=== PATIENT | male | born 1970 | race Caucasian/White ===

== ENCOUNTER 2020-07-22 11:32 | Inpatient (IN) | payer MEDICAID, SELFPAY ==
[2020-04-21 12:20] VITALS: BMI 28.3
[2020-07-22] VITALS (40 sets, daily range): BP systolic 40–226; BP diastolic 20–142; PULSE 90–120; RESP 14–33; TEMP 36.6–39; O2SAT 76–100; BMI 30.9; BMI 29.4
[2020-07-22] MEDS: Etomidate 20 MG/10 ML Vial IV (11:47)
[2020-07-22] MEDS: Rocuronium Bromide 50 MG/5 ML Vial IV (11:47)
[2020-07-22 11:55] LABS: Base Excess -4 mmol/L (-2 to +2); Bicarbonate 20.5 mmol/L (22-26); Blood Gas Specimen Type ART; SO2 71 % (95-99); Total Carbon Dioxide 22 mmol/L
--- NOTE | 2020-07-22 11:55 | CT_ITS ---
STUDY: CT BRAIN WITHOUT CONTRAST REASON FOR EXAM: Male, 50 years old. ALTERED MENTAL STATUS RADIATION DOSAGE (If Supplied By Facility): CTDIvol = ( 60.81 ) mGy, DLP = ( 1067.08 ) mGycm TECHNIQUE: Transaxial CT imaging of the brain was performed without administration of intravenous contrast material. Individualized dose optimization techniques were used for this CT. COMPARISON: No relevant priors. FINDINGS: Normal soft tissue structures. Normal calvarium. Normal size ventricles and extra-axial spaces for the patient''s age. There is evidence of pronounced garduno-white matter differentiation in the cerebral hemispheres bilaterally. There is evidence of old lacunar infarcts in the caudate nucleus involving the head and body on the right side. Lacunar infarct in the left basal ganglion. Normal brainstem. Diffuse hypodensity involving both lobes of the cerebellum in keeping with diffuse infarction. Decreased attenuation in the cerebellum with edema. There is no intracranial hemorrhage. There are no findings of an acute ischemic infarction. Normal visualized paranasal sinuses. CT/Brain/Head without Contrast IMPRESSION: Changes involving the cerebellum and cerebral hemispheres and basal ganglia consistent with the decreased oxygenation and asphyxia. Electronically Signed: Americo Schulz, at 12:43 EDT , Service support ,
--- NOTE | 2020-07-22 11:55 | EKG12_ITS ---
Test Reason : REPEAT-OVERDOSE Blood Pressure : / mmHG Vent. Rate : 110 BPM Atrial Rate : 110 BPM P-R Int : 116 ms QRS Dur : 106 ms QT Int : 330 ms P-R-T Axes : 073 073 071 degrees QTc Int : 446 ms Sinus tachycardia Incomplete right bundle branch block Nonspecific ST abnormality Abnormal ECG Confirmed by MOISÉS HAMM, DEON ([id number]), movie editor ARMEN ANDUJAR ([id number]) on 07/28/2020 1:13:49 PM Referred By: RUFINO Confirmed By:LAISHA CURIEL MD
[2020-07-22] MEDS: Midazolam 5 MG/ML Syringe IV (12:00)
--- NOTE | 2020-07-22 12:05 | RAD_ITS ---
STUDY: X-RAY CHEST REASON FOR EXAM: Male, 50 years old. Intubation, overdose TECHNIQUE: Single AP portable view of the chest. COMPARISON: None. FINDINGS: An endotracheal tube is in situ. The tip is at 4.6 cm proximal to the lucas. An orogastric tube is seen with the tip in the fundal portion of the stomach. EKG electrodes are seen. There is evidence of bilateral perihilar airspace disease suggestive of pulmonary edema. There is no demonstrated pleural abnormality. Normal size heart. Normal mediastinum and jennifer. Normal visualized pulmonary arteries. Normal visualized aortic arch and descending thoracic aorta. There are degenerative changes of the visualized thoracic spine. Normal visualized ribs, clavicles, and shoulders. There is no demonstrated abnormality of the visualized soft tissue structures of the upper abdomen. RAD/Chest 1 View (Portable) IMPRESSION: Bilateral perihilar airspace disease suggestive of pulmonary edema. The support tubes are in good position. Electronically Signed: Americo Schulz, at 12:44 EDT , Service support ,
[2020-07-22] MEDS: 0.9% Normal Saline 1,000 ML 1000 ML IV (12:08)
[2020-07-22] MEDS: 0.9% Normal Saline 1,000 ML 150 ML IV (12:08)
--- NOTE | 2020-07-22 12:10 | ED.VIS.GEN ---
History of Present Illness Chief Complaint: Overdose Informant: Floor Covering Printer Assistant, - - [facility] Narrative: Patient is brought to the emergency department by EMS. 911 call was placed by a friend for respiratory distress. 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 There has been recent reports of methamphetamine production using wasp spray in the [facility]. EMS states that he had pinpoint pupils and was extremely diaphoretic. They noted him to be tachycardic and tachypneic. They administered 3 rounds of Narcan with no change in mental status or physical exam. Later in ED course former significant other states that he has been suicidal (reportedly suicide by coper hand or OD) and in a shack behind her house that belongs to the neighbor. She reportedly told nursing that he was at her front door at 6 AM this morning and then took off running around the house. The neighbor reportedly told the police that he was in her bed during the night. Between 6 and 7 was noted to have some funny breathing but not unusual given his COPD. When he became diaphoretic she called for help. At the beginning of this course it was reported to me that he was found in a shack behind his former significant other's neighbors house. Later I learned that he was found in the bed of the neighbors house. Past Medical History - Allergies and Home Meds Allergies/Adverse Reactions: Allergies No Known Allergies Allergy (Verified 04/21/20 12:20) Prior records reviewed: Yes Past Medical History: - - Unable to obtain Surgical History: - - Unable to obtain Smoking Status: Current every day smoker Review of Systems ROS: Unable to Obtain Physical Exam Vital Signs/Narrative: Vital Signs Temp Pulse Resp BP Pulse Ox 07/22/20 11:36 101 H 33 H 183/142 H 86 07/22/20 11:33 98 F 114 H 30 H 169/127 H 86 Inital Vital Signs reviewed: Yes General: Well nourished, Well developed, Acute Distress Head: Normocephalic, Atraumatic Eyes: - - Pupils are 2 mm bilaterally with a fixed downward gaze. I do not appreciate a corneal reflex. No periorbital petechiae were noted ENT: No rhinorrhea, - - Patient has dry mouth. Neck: Supple, Nontender, - - No bruising of the neck or bruits heard. Strong carotid upstroke. Cardiovascular: Regular rate, No murmurs, Tachycardia Respiratory: Rales, - - It is tachypneic with accessory muscle use prolonged expiration and audible rails Abdomen: Soft, Nontender, Nondistended, Normal bowel sounds Back: Nontender, Normal Inspection Extremities: Nontender, No edema, - - Patient has extremely tense muscle tone of the arms and legs Skin: Normal color, No rash, Diaphoresis, - - There is no obvious trauma to his back. There are some red lines where his belt/underwear/shorts were. Neurological: - - Increased muscle tone of the extremities with plantar flexion preference of feet. Unresponsive to pain or voice. Fixed gaze. Diagnostic/Tx/Re-eval Clinical Impression(s) from Imaging Studies Brain CT 07/22/20 11:55 IMPRESSION: Changes involving the cerebellum and cerebral hemispheres and basal ganglia consistent with the decreased oxygenation and asphyxia. Electronically Signed: Americo Schulz, at 12:43 EDT , Service support , Chest X-Ray 07/22/20 12:05 IMPRESSION: Bilateral perihilar airspace disease suggestive of pulmonary edema. The support tubes are in good position. Electronically Signed: Americo Schulz, at 12:44 EDT , Service support , Laboratory Last Values WBC 13.8 K/mm3 (4.4-11.0) H 07/22/20 11:35 RBC 6.08 M/mm3 (4.6-6.2) 07/22/20 11:35 Hgb 16.9 g/dL (13.0-16.5) H 07/22/20 11:35 Hct 51.0 % (40-54) 07/22/20 11:35 MCV 83.9 fL (80-94) 07/22/20 11:35 MCH 27.8 pg (27.0-32.0) 07/22/20 11:35 MCHC 33.1 g/dL (32-36) 07/22/20 11:35 RDW Std Deviation 42.8 fl (35.1-43.9) 07/22/20 11:35 RDW Coeff of Estefani 14.2 % (11.6-14.6) 07/22/20 11:35 Plt Count 285 K/mm3 (150-450) 07/22/20 11:35 MPV 10.1 fl (6.2-12.0) 07/22/20 11:35 Immature Gran % (Auto) 0.400 % (0.0-0.9) 07/22/20 11:35 Neut % (Auto) 84.3 % (47-70) H 07/22/20 11:35 Lymph % (Auto) 10.4 % (19-41) L 07/22/20 11:35 Dougherty % (Auto) 2.9 % (0-10) 07/22/20 11:35 Eos % (Auto) 1.1 % (0-5) 07/22/20 11:35 Baso % (Auto) 0.9 % (0-1) 07/22/20 11:35 Absolute Neuts (auto) 11.6 X10^3/uL (2.0-7.7) H 07/22/20 11:35 Absolute Lymphs (auto) 1.44 X10^3/uL (0.83-4.51) 07/22/20 11:35 Nucleated RBC % 0 % (0-5) 07/22/20 11:35 Differential Comment SCANNED 07/22/20 11:35 PT 18.2 SECONDS (11.7-14.9) H 07/22/20 12:00 INR 1.6 07/22/20 12:00 APTT QNS 07/22/20 12:00 Specimen Type ART 07/22/20 13:13 Sample Site R Radial 07/22/20 13:13 pH 7.37 (7.35-7.45) 07/22/20 13:13 Bicarbonate Actual 20.9 mmol/L (22-26) L 07/22/20 13:13 Total CO2 22 mmol/L 07/22/20 13:13 Base Excess -4 mmol/L (-2 to +2) L 07/22/20 13:13 O2 Saturation 92 % (95-99) L 07/22/20 13:13 O2 % 100 07/22/20 13:13 ABG pCO2 36.4 mmHg (35-45) 07/22/20 13:13 ABG pO2 66 mmHG (75-100) L 07/22/20 13:13 Ramiro Test Positive 07/22/20 13:13 Respiration Rate 14.0000 07/22/20 13:13 O2 Delivery Device Adult Vent 07/22/20 13:13 Liter Flow 4.0 /min 07/22/20 11:48 Vent Mode AC 07/22/20 13:13 Tidal Volume 500 07/22/20 13:13 Blood Gas Notified Whom ED 07/22/20 11:48 Blood Gas Notified Time 1155 07/22/20 11:48 Sodium 143 mmol/L (136-145) 07/22/20 11:35 Potassium 4.6 mmol/L (3.5-5.1) 07/22/20 11:35 Chloride 109 mmol/L (98-107) H 07/22/20 11:35 Carbon Dioxide 20.0 mmol/L (21.0-32.0) L 07/22/20 11:35 Anion Gap 14 (5-15) 07/22/20 11:35 BUN 56 mg/dL (7-18) H 07/22/20 11:35 Creatinine 2.74 mg/dL (0.70-1.30) H 07/22/20 11:35 Estim Creat Clear Calc 34.04 ml/min 07/22/20 11:35 Est GFR (MDRD) Af Amer 32 mL/min (>60) L 07/22/20 11:35 Est GFR (MDRD) Non-Af 27 mL/min (>60) L 07/22/20 11:35 BUN/Creatinine Ratio 20.4 RATIO (10-20) H 07/22/20 11:35 Glucose 131 mg/dL (74-106) H 07/22/20 11:35 Lactic Acid 6.2 mmol/L (0.4-1.9) H* 07/22/20 12:00 Calcium 9.1 mg/dL (8.5-10.1) 07/22/20 11:35 Total Bilirubin 1.80 mg/dL (0.20-1.00) H 07/22/20 11:35 AST 1797 U/L (15-37) H 07/22/20 11:35 ALT 1800 U/L (16-61) H 07/22/20 11:35 Alkaline Phosphatase 74 U/L (45-117) 07/22/20 11:35 Total Creatine Kinase 34664 U/L (39-308) H 07/22/20 11:35 Troponin I 34.600 ng/mL (<0.045) H* 07/22/20 11:35 Total Protein 7.6 g/dL (6.4-8.2) 07/22/20 11:35 Albumin 3.3 g/dL (3.2-5.0) 07/22/20 11:35 Globulin 4.3 g/dL (2.2-4.2) H 07/22/20 11:35 Albumin/Globulin Ratio 0.8 RATIO (0.9-2.4) L 07/22/20 11:35 Lipase 61 U/L (73-393) L 07/22/20 11:35 Urine Color Yellow (Yellow) 07/22/20 11:53 Urine Clarity Clear (Clear) 07/22/20 11:53 Urine pH 5.0 (5.0 - 8.0) 07/22/20 11:53 Ur Specific Aurora 1.025 (1.002-1.030) 07/22/20 11:53 Urine Protein 30 mg/dl (Negative) H 07/22/20 11:53 Urine Glucose (UA) Normal mg/dl (Normal) 07/22/20 11:53 Urine Ketones 15 mg/dl (Negative) H 07/22/20 11:53 Urine Occult Blood 250 /ul (Negative) H 07/22/20 11:53 Urine Nitrite Negative (Negative) 07/22/20 11:53 Urine Bilirubin Negative mg/dL (Negative) 07/22/20 11:53 Urine Urobilinogen 1 mg/dl (Normal) H 07/22/20 11:53 Ur Leukocyte Esterase 25 /ul (Negative) H 07/22/20 11:53 Urine RBC 0-5 SEEN /hpf (0-5) 07/22/20 11:53 Urine WBC 0 SEEN /hpf (0-5) 07/22/20 11:53 Ur Squamous Epith Cells 0 SEEN /hpf (0-5) 07/22/20 11:53 Urine Bacteria 0 SEEN /hpf (None Seen) 07/22/20 11:53 Urine Mucus 1+ /hpf (<or=2+) 07/22/20 11:53 Urine Opiates Screen NEGATIVE (< 300 ng/mL) 07/22/20 11:53 Urine Methadone Screen NEGATIVE (< 300 ng/mL) 07/22/20 11:53 Ur Barbiturates Screen NEGATIVE (< 200 ng/mL) 07/22/20 11:53 Ur Phencyclidine Scrn NEGATIVE (< 25 ng/mL) 07/22/20 11:53 Ur Amphetamines Screen POSITIVE (<1000 ng/mL) H 07/22/20 11:53 U Methamphetamin-MDMA POSITIVE (< 500 ng/mL) H 07/22/20 11:53 U Benzodiazepines Scrn NEGATIVE (< 200 ng/mL) 07/22/20 11:53 Urine Cocaine Screen NEGATIVE (< 300 ng/mL) 07/22/20 11:53 U Cannabinoids Screen NEGATIVE (< 50 ng/mL) 07/22/20 11:53 Ur Drug Screen Comment 07/22/20 11:53 Ethyl Alcohol < 3.0 mg/dL 07/22/20 11:35 - Medical Decision Making Despite Narcan by EMS no improvement in his symptoms. Patient is in obvious respiratory distress with a pulse ox in the 70s on nonrebreather. He has a fixed gaze with pinpoint pupils. There appears to be a high likelihood of toxidrome. Patient underwent emergent RSI using etomidate and rocuronium. A 8-0 endotracheal tube was secured at 24 cm on the first attempt without any difficulty. The patient went to CT where diffuse cerebral infarction was noted. Labs are consistent with NSTEMI, acute renal failure, shock liver. Patient began to have decerebrate posturing intermittently. He is difficult to maintain oxygen saturation on the vent. Notably substantial hypertension upwards of 240/130 at times. He was given labetalol. We are attempting to contact next of kin. 's department have been updated. Exact cause of his symptoms that started all this is unclear. We are told that he has been suicidal and not himself. I do not see outward signs of trauma. I think anoxia can explain a good portion of his symptoms but not all. Social work was able to contact the son who did not wish to come up. We got a hold of the patient's mother. She has come to the emergency department. She states that he would want to pursue organ donation. The discussion to make him DNR comfort care for organ donation was held by myself and his mother and witnessed by nursing and social work. Our plan will be admission to pursue this option. Dr. Jenkins ([facility]) and Dr. New () were updated. Patient was not felt to be a TPA candidate with no definitive time onset and that this is likely not ischemic but hypoxic infarctions. - Critical Care Time Critical care time (excluding procedures): 30-74 minutes - 35 min, Discussing w/Consultants, Arranging Admission or Transfer, Performing Direct Patient Care at Bedside ED Disposition - Plan for ED Patient: Disposition: Acute Care Hospital [facility] Diagnosis: Acute respiratory failure, Cerebral infarction, Rhabdomyolysis, NSTEMI (non-ST elevated myocardial infarction), Acute renal failure, Shock liver, Methamphetamine abuse
--- NOTE | 2020-07-22 12:18 | CPS ---
critical value to Dr Rosalio Pan LEGGER PRESS OPERATOR
--- NOTE | 2020-07-22 12:18 | CM.ED ---
SOCIAL WORK Reason for Consult: Overdose Patient intubated in ED. Call to patient's Next of Kin listed-mother, Sulema Vernon [phone]. No answer, left message with this worker's call back information. Gerard Ariza, BOOM MAN, MANAGER HEALTH
--- NOTE | 2020-07-22 12:24 | CM.ED ---
SOCIAL WORK Call to listed, Person to Notify-Madeleine Spekarli. Madeleine relationship to patient is mother of his children. Madeleine states patient is homeless and long history of substance abuse. Madeleine states patient was last seen by her last week and reports patient is currently using meth and has history of heroin use. Madeleine acuña patent is critical and intubated. Madeleine states patient's mother is at work and unable to answer phone. Madeleine will be coming in to the hospital. Emotional support provided. Gerard Ariza, SHOVEL MECHANIC, REHAB THERAPY MANAGER
[2020-07-22] MEDS: 0.9% Normal Saline 1,000 ML 999 ML IV ×3 (12:30→19:01)
[2020-07-22 12:33] LABS: Alcohol, Blood (Medical)-Serum < 3.0 mg/dL
[2020-07-22 12:37] LABS: International Normalized Ratio 1.6; Prothrombin Time (Protime)PT. 18.2 SECONDS (11.7-14.9)
[2020-07-22 12:37] LABS: Absolute Lymphocyte Count 1.44 X10^3/uL (0.83-4.51); Absolute Neutrophil Count 11.6 X10^3/uL (2.0-7.7); Basophil# 0.12 X10^3/uL; Basophil% 0.9 % (0-1); Eosinophil# 0.15 X10^3/uL; Eosinophils% 1.1 % (0-5); Hemoglobin 16.9 g/dL (13.0-16.5); Lymphocyte # 1.44 X10^3/ul (4.0); Lymphocyte % 10.4 % (19-41); Mean Corp Hgb Conc 33.1 g/dL (32-36); Mean Corpuscular Hgb 27.8 pg (27.0-32.0); Mean Corpuscular Volume 83.9 fL (80-94); Mean Platelet Vol. 10.1 fl (6.2-12.0); Monocyte% 2.9 % (0-10); NRBC Flagged by Analyzer 0 % (0-5); Neutrophil # 11.63 X10^3/uL (2.7-7.7); Neutrophil % 84.3 % (47-70); POSITIVE MORPHOLOGY YES; Platelet Count 285 K/mm3 (150-450); RBC Distribution Width CV 14.2 % (11.6-14.6); RBC Distribution Width SD 42.8 fl (35.1-43.9); Red Blood Count 6.08 M/mm3 (4.6-6.2); White Blood Count 13.8 K/mm3 (4.4-11.0)
[2020-07-22 12:44] LABS: Bacteria 0 SEEN /hpf (None Seen); Squamous Epithelial Cells - UA 0 SEEN /hpf (0-5); White Blood Cells 0 SEEN /hpf (0-5)
[2020-07-22 12:47] LABS: ALB/GLOB Ratio 0.8 RATIO (0.9-2.4); AST(SGOT) 1797 U/L (15-37); Alanine Aminotransfer ALT/SGPT 1800 U/L (16-61); Albumin, Serum 3.3 g/dL (3.2-5.0); Alkaline Phosphatase 74 U/L (45-117); Anion Gap 14 (5-15); BUN 56 mg/dL (7-18); BUN/Creat Ratio 20.4 RATIO (10-20); Calcium,Total 9.1 mg/dL (8.5-10.1); Chloride 109 mmol/L (98-107); Creatinine, Serum 2.74 mg/dL (0.70-1.30); EST Glomerular Filtration Rate 27 mL/min (>60); Est Glom Filt Rate - Afr Amer 32 mL/min (>60); Estimated Creatinine Clearance 34.04 ml/min; Globulin 4.3 g/dL (2.2-4.2); Glucose 131 mg/dL (74-106); Lipase 61 U/L (73-393); Potassium 4.6 mmol/L (3.5-5.1); Protein, Total 7.6 g/dL (6.4-8.2); Sodium Level 143 mmol/L (136-145)
[2020-07-22 12:47] LABS: Lactic Acid 6.2 mmol/L (0.4-1.9)
[2020-07-22] MEDS: Labetalol 100 MG/20 ML Vial 20 MG IV (12:48)
[2020-07-22 12:50] LABS: Partial Thromboplast Time QNS Seconds (24.1-36.2)
--- NOTE | 2020-07-22 12:51 | NURSING ---
NEED PTT, QUANTITY INSUFFICIENT
[2020-07-22 12:55] LABS: Color, Urine Yellow (Yellow); Glucose, Dipstick Normal (Normal); Ketone-Dipstick 15 mg/dl (Negative); Leukocyte Esterase-Dipstick 25 /ul (Negative); Nitrite-Dipstick Negative (Negative); Occult Blood-Urine 250 /ul (Negative); Protein-Dipstick 30 mg/dl (Negative); Specific Gravity, Urine 1.025 (1.002-1.030); Urine Bilirubin Dipstick Negative (Negative); Urine Clarity Clear (Clear); Urine Urobilinogen 1 mg/dl (Normal)
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
[2020-07-22 13:04] LABS: CPK Total, Creatine Kinase 13177 U/L (39-308)
[2020-07-22 13:04] LABS: Amphetamine Urine VISTA POSITIVE (<1000 ng/mL); Barbiturate Urine VISTA NEGATIVE (< 200 ng/mL); Benzodiazepine Urine VISTA NEGATIVE (< 200 ng/mL); Cocaine Urine VISTA NEGATIVE (< 300 ng/mL); Ecstacy Urine VISTA POSITIVE (< 500 ng/mL); Methadone Urine VISTA NEGATIVE (< 300 ng/mL); PCP Urine VISTA NEGATIVE (< 25 ng/mL); THC Urine VISTA NEGATIVE (< 50 ng/mL); Vista UDS pH Range 5
[2020-07-22 13:05] LABS: SITE L RADIAL
[2020-07-22 13:06] LABS: Allen Test POS; O2 Delivery Device Nasal Can; Time Given 1155
[2020-07-22 13:08] LABS: PO2 37 mmHG (75-100)
[2020-07-22 13:10] LABS: Differential Indicated SCAN CRITERIA MET
[2020-07-22 13:11] LABS: Differential Comment SCANNED
--- NOTE | 2020-07-22 13:17 | CM.ED ---
SOCIAL WORK Received call from woman stating, I'm the neighbor where patient was brought in from. Can you give me an update on how he is doing? Informed caller she would need to speak with family and this worker could take down name and phone number. Caller said no and hung up the phone. Gerard Ariza, WOOD STOCK BLANK HANDLER, GRANULATOR MACHINE OPERATOR
[2020-07-22 13:22] LABS: Mucous, Urine 1+ /hpf (<or=2+); Red Blood Cells-Urine 0-5 SEEN /hpf (0-5)
[2020-07-22 13:51] LABS: Allen Test Positive; Base Excess -4 mmol/L (-2 to +2); Bicarbonate 20.9 mmol/L (22-26); Blood Gas Specimen Type ART; FI02 100; Mode AC; O2 Delivery Device Adult Vent; PO2 66 mmHG (75-100); SITE R Radial; SO2 92 % (95-99); Total Carbon Dioxide 22 mmol/L; Vt 500; pCO2 36.4 mmHg (35-45); pH 7.37 (7.35-7.45)
--- NOTE | 2020-07-22 14:00 | CM.ED ---
SOCIAL WORK Dr. Santamaria meeting with patient's mother and ex-girlfriend at this time and escorted to patient's room. Mother reported patient would want to donate organs. Patient to be admitted and worked up for organ donation. Gerard Ariza, DIRECTOR OF CAREER SERVICES, TILE LAYER SUPERVISOR
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
--- NOTE | 2020-07-22 14:03 | NURSING ---
DR PAYAM JOY
--- NOTE | 2020-07-22 14:16 | NURSING ---
ICU PAYAM CEREBRAL INFARCTION SHOCK LIVER, NSTEMI
--- NOTE | 2020-07-22 14:35 | HP.PCM_ITS ---
History of Present Illness Date of Admission: 07/22/20 The patient is a 50 year old M who was brought in to the ED on 07/22/2020 by the EMS after a 911 call was placed for respiratory distress. 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 He had pinpoint pupils on initial examination by the EMS and was given Narcan x 3 rounds per reports with no change in MS. Later in the ED course a former significant other who came in states that the pt has been suicidal and in a shack behind her house that belongs to her neighbor. She told nursing that he was at the front door of her house a 6 am today and took off running around the house.. In the ED he had a sat of 70% on a NRB and pupils remained fixed and pinpoint and he was intubated using RSI. CT Head was done and showed changes of the cerebellum and cerebral hemispheres and basal ganglia c/w anoxia. His troponin is elevated to 34.6 and his EKG shows some mild lateral lead depression. His CK was >13,000 and he has a sCr of 2.74. His AST 1797 and ALT 1800. His initial lactate was 6.2. His VS are now stable but he is starting to have BP elevations that have thus far responded to prn labetalol. He has decerebrate posturing on exam and pupils remain pinpoint. The ED discussed things with his mother and she wanted to make him DNRCCO and consult [facility] for organ donation. We were called to admit to the ICU and facilitate this. Past Medical History Allergies No Known Allergies Allergy (Verified 04/21/20 12:20) Home Medications: Ambulatory Orders Medication Instructions Recorded Loratadine/Pseudoephedrine 1 tab PO DAILY PRN PRN 07/22/20 [Claritin-D 24 Hour Tablet] Surgical History: - - Unable to obtain Psychiatric History: Depression Smoking Status: Current every day smoker Tobacco Use: - - unknown Drugs: - - polysubstance abuse Review of Systems Unable to obtain accurate/complete ROS d/t: pt was obtunded VTE Information - Inpt Only VTE Present on Admission: No VTE Mechan Device Prophylaxis: None VTE Pharm Prophylaxis ordered?: No Patient Problems: Active and Suspected Problems Acute respiratory failure (Acute) Cerebral infarction (Acute) Rhabdomyolysis (Acute) NSTEMI (non-ST elevated myocardial infarction) (Acute) Acute renal failure (Acute) Shock liver (Acute) Methamphetamine abuse (Acute) - Physical Exam Vitals/I&O's: Vital Signs Temp Pulse Resp BP Pulse Ox 98 F 106 H 20 H 187/108 H 100 07/22/20 11:33 07/22/20 14:05 07/22/20 14:05 07/22/20 14:05 07/22/20 14:05 Oxygen Delivery Method Mechanical Ventilator Weight: 97.9 kg Body Mass Index (BMI) 30.9 Intake and Output for Last 24 Hours 07/20/20 07/21/20 07/22/20 23:59 23:59 23:59 Intake Total Balance General: - - Intubated on Vent, myoclonus and decerebrate posturing HEENT: Atraumatic, Normocephalic, EAC Clear, - - pupils are fixed and pinpoint Oral: Moist Mucosa, - - [address] Neck: Supple, No JVD, Negative Carotid Bruits, Negative Hepatojugular Reflux, No Nodes, Trachea Midline, Thyroid Normal Size and Texture Lungs: Normal air movement, No wheeze, No rales, Rhonchi - scattered Cardiovascular: Regular Rhythm, Normal S1, Normal S2, No murmurs, No Ectopic Activity, No rub noted, No Gallop, Tachycardic - mild Abdomen: Bowel Sounds Present, Soft, Non Tender, Non-Distended, No Hepato- splenomegaly, No hernias noted Extremities: No clubbing, No cyanosis, No edema, Peripheral Pulses Normal Skin: No rashes, No breakdown, - - hands dirty with few healing wounds Musculoskeletal: No Tenderness to Palpation of Joints or Extremities, No Muscle Wasting Lymphatic: No Cervical, Supraclavicular, or Inguinal Adenopathy Neurological: - - decerebrate posturing with myoclonic jerking noted Psych/Mental Status: - - intubated Laboratory Results 07/22/20 11:35: WBC 13.8 H, RBC 6.08, Hgb 16.9 H, Hct 51.0, MCV 83.9, MCH 27.8, MCHC 33.1, RDW Std Deviation 42.8, RDW Coeff of Estefani 14.2, Plt Count 285, MPV 10.1, Immature Gran % (Auto) 0.400, Neut % (Auto) 84.3 H, Lymph % (Auto) 10.4 L, [place] % (Auto) 2.9, Eos % (Auto) 1.1, Baso % (Auto) 0.9, Absolute Neuts (auto) 11.6 H, Absolute Lymphs (auto) 1.44, Nucleated RBC % 0, Differential Comment SCANNED 07/22/20 11:35: Sodium 143, Potassium 4.6, Chloride 109 H, Carbon Dioxide 20.0 L , Anion Gap 14, BUN 56 H, Creatinine 2.74 H, Estim Creat Clear Calc 34.04, Est GFR (MDRD) Af Amer 32 L, Est GFR (MDRD) Non-Af 27 L, BUN/Creatinine Ratio 20.4 H , Glucose 131 H, Calcium 9.1, Total Bilirubin 1.80 H, AST 1797 H, ALT 1800 H, Alkaline Phosphatase 74, Troponin I 34.600 H*, Total Protein 7.6, Albumin 3.3, Globulin 4.3 H, Albumin/Globulin Ratio 0.8 L, Lipase 61 L 07/22/20 11:35: Ethyl Alcohol < 3.0 07/22/20 11:35: Total Creatine Kinase 69632 H 07/22/20 11:48: Specimen Type ART, Sample Site L RADIAL, pH 7.40, Bicarbonate Actual 20.5 L, Total CO2 22, Base Excess -4 L, O2 Saturation 71 L, ABG pCO2 33.0 L, ABG pO2 37 L*, Ramiro Test POS, O2 Delivery Device Nasal Can, Liter Flow 4.0, Blood Gas Notified Whom ED , Blood Gas Notified Time 1155 07/22/20 11:53: Urine Color Yellow, Urine Clarity Clear, Urine pH 5.0, Ur Specific [place] 1.025, Urine Protein 30 H, Urine Glucose (UA) Normal, Urine Ke tones 15 H, Urine Occult Blood 250 H, Urine Nitrite Negative, Urine Bilirubin Negative, Urine Urobilinogen 1 H, Ur Leukocyte Esterase 25 H, Urine RBC 0-5 SEEN, Urine WBC 0 SEEN, Ur Squamous Epith Cells 0 SEEN, Urine Bacteria 0 SEEN, Urine Mucus 1+ 07/22/20 11:53: Urine Opiates Screen NEGATIVE, Urine Methadone Screen NEGATIVE, Ur Barbiturates Screen NEGATIVE, Ur Phencyclidine Scrn NEGATIVE, Ur Amphetamines Screen POSITIVE H, U Methamphetamin-MDMA POSITIVE H, U Benzodiazepines Scrn NEGATIVE, Urine Cocaine Screen NEGATIVE, U Cannabinoids Screen NEGATIVE, Ur Drug Screen Comment 07/22/20 12:00: PT 18.2 H, INR 1.6, APTT QNS 07/22/20 12:00: Lactic Acid 6.2 H* 07/22/20 13:13: Specimen Type ART, Sample Site R Radial, pH 7.37, Bicarbonate Actual 20.9 L, Total CO2 22, Base Excess -4 L, O2 Saturation 92 L, O2 % 100, ABG pCO2 36.4, ABG pO2 66 L, Ramiro Test Positive, Respiration Rate 14.0000, O2 Delivery Device Adult Vent, Vent Mode AC, Tidal Volume 500 Current Medications Midazolam HCl 50 mg/ Sodium (Chloride) 100 mls @ 2 mls/hr CONT INF .Q50H [facility]; Protocol Last Titration: 07/22/20 13:43 Dose: 4 mg/hr, 8 mls/hr Documented by: Sodium Chloride () 1,000 mls @ 150 mls/hr IV .Q6H40M [facility] Last Admin: 07/22/20 12:08 Dose: 150 mls/hr Documented by: Assessment/Plan All Active Problems Suicidal ideation (Acute) Acute respiratory failure (Acute) Cerebral infarction (Acute) Rhabdomyolysis (Acute) NSTEMI (non-ST elevated myocardial infarction) (Acute) Acute renal failure (Acute) Shock liver (Acute) Methamphetamine abuse (Acute) ASSESSMENT Acute Hypoxic Respiratory Failure Drug OD Anoxic Encephalopathy B Cerebellar Infarction Shock Liver Rhabdomyolysis JONEL Lactic Acidosis Leukocytosis Polysubstance Abuse SI PLAN -admit to ICU -[facility] notified -DNRCCO -ETT to Vent -LR at 75 cc/hr -lab per [facility] -OGT to LIS -prn dilaudid for sedation and if this does not work will add propofol -d/w Dr. Jenkins Inpatient E&M: 83036 Init Hosp L3
--- NOTE | 2020-07-22 15:05 | NURSING ---
icu 3
--- NOTE | 2020-07-22 15:15 | CM.ED ---
SOCIAL WORK Patient's son, Kartik arrived to ER. Discussed decision making and Kartik being Next of Kin. Kartik reports does have a half brother, Paul Angel who he has contacted. Kartik states unsure if Paul will come to hospital as he and patient have been estranged and just recently started talking again. Kartik to obtain contact information for Paul. Gerard Ariza, HAT MEASURER, MECHANIC
--- NOTE | 2020-07-22 15:20 | CM.ED ---
SOCIAL WORK Deputies arrived and met with family. Multiple family members arriving and escorted to patient's room. Emotional support provided throughout. CHARLOTTE Beck, DANCE CHOREOGRAPHER
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
[2020-07-22 16:20] LABS: Reflex Lactate? Y
[2020-07-22] MEDS: Labetalol (Prefilled) 20 MG/4 ML IV (17:20)
--- NOTE | 2020-07-22 18:50 | CM.ED ---
SOCIAL WORK Forging Press Lever Tender from [facility] here meeting with patient's son's, Kartik Vernon ([phone]) and Paul Angel. Gerard Ariza, GENERAL SERVICE OFFICER, DIRECTOR REGULATORY AFFAIRS
[2020-07-22] MEDS: Lactated Ringers 1,000 ML 75 ML IV (20:00)
[2020-07-22] MEDS: Chlorhexidine 15 ML PO (20:15)
--- NOTE | 2020-07-22 21:59 | RAD_ITS ---
STUDY: X-RAY CHEST REASON FOR EXAM: Male, 50 years old. Line placement. TECHNIQUE: Single AP portable view of the chest. COMPARISON: July 22 2020 at 11:58 AM FINDINGS: Stable endotracheal and feeding tube. New right IJ catheter in the mid SVC region. No change in moderate bilateral perihilar pulmonary edema. No pneumothorax or visualized pleural effusion. Normal heart size. Stable osseous structures. RAD/Chest 1 View (Portable) IMPRESSION: No significant change in moderate perihilar pulmonary edema Electronically Signed: Al Jane MD at 23:10 EDT , Service support ,
--- NOTE | 2020-07-22 22:13 | PCM.PN.BLA ---
Progress Note Left IJ Procedure: CV catheter Insertion The patient was appropriately placed to maximize comfort. The site was cleansed and allowed to dry prior to draping the patient. The vein was successfully cannulated and a guidewire was inserted. The needle was removed and the vein dilator was advanced over the guidewire. The dilator was removed and a catheter was threaded over the guidewire while maintaining control over the guidewire. The guidewire was removed and each port was sequentially aspirated and then flushed with saline. The catheter was sutured in place and the site was dressed using sterile technique. A chest x-ray was obtained and the tip is made superior vena cava region. The patient tolerated the procedure well. Right IJ Unsuccessful cannulation of right IJ. STROKE Vital Signs/Narrative: Vital Signs Temp Pulse Resp BP Pulse Ox 07/22/20 21:55 94/63 07/22/20 21:50 101/72 07/22/20 21:45 93/61 07/22/20 21:40 85/58 L 07/22/20 21:25 103/65 07/22/20 21:20 95/67 07/22/20 21:15 77/46 L 07/22/20 21:10 86/62 L 07/22/20 21:05 111/70 07/22/20 21:00 101.0 F H 96 14 83/52 L 100 07/22/20 20:50 87/52 L 07/22/20 20:45 101.0 F H 97 14 94/70 100 07/22/20 20:40 123/90 H 07/22/20 20:35 91/75 07/22/20 20:30 101.1 F H 98 14 89/71 L 100 07/22/20 20:25 68/53 L 07/22/20 20:15 101.2 F H 96 14 89/73 L 100 07/22/20 20:10 95/72 07/22/20 20:05 74/53 L 07/22/20 20:00 101.6 F H 90 14 50/37 L 100 07/22/20 19:59 91 07/22/20 19:51 92 14 40/20 L 100 07/22/20 19:50 40/20 L Procedures: 52704 Insert Non-tunnel CV Cath
[2020-07-22 22:23] LABS: ALB/GLOB Ratio 0.8 RATIO (0.9-2.4); AST(SGOT) 1143 U/L (15-37); Alanine Aminotransfer ALT/SGPT 1310 U/L (16-61); Albumin, Serum 2.1 g/dL (3.2-5.0); Alkaline Phosphatase 46 U/L (45-117); Amylase 672 U/L (25-115); Anion Gap 5 (5-15); BUN 49 mg/dL (7-18); BUN/Creat Ratio 23.8 RATIO (10-20); Bilirubin, Direct 0.34 mg/dL (0.00-0.30); Chloride 119 mmol/L (98-107); Creatinine, Serum 2.06 mg/dL (0.70-1.30); EST Glomerular Filtration Rate 37 mL/min (>60); Est Glom Filt Rate - Afr Amer 45 mL/min (>60); Estimated Creatinine Clearance 45.28 ml/min; Globulin 2.7 g/dL (2.2-4.2); Glucose 109 mg/dL (74-106); Lactic Acid 2.5 mmol/L (0.4-1.9); Lipase 47 U/L (73-393); Potassium 4.6 mmol/L (3.5-5.1); Protein, Total 4.8 g/dL (6.4-8.2); Sodium Level 147 mmol/L (136-145)
[2020-07-22 22:42] LABS: Mucous, Urine 0 SEEN /hpf (<or=2+); Squamous Epithelial Cells - UA 0 SEEN /hpf (0-5)
[2020-07-22 22:44] LABS: Color, Urine Yellow (Yellow); Glucose, Dipstick Normal (Normal); Ketone-Dipstick Negative (Negative); Leukocyte Esterase-Dipstick 25 /ul (Negative); Nitrite-Dipstick Negative (Negative); Occult Blood-Urine 250 /ul (Negative); Protein-Dipstick 30 mg/dl (Negative); Specific Gravity, Urine 1.015 (1.002-1.030); Urine Bilirubin Dipstick Negative (Negative); Urine Clarity Clear (Clear); Urine Urobilinogen Normal (Normal)
[2020-07-22 23:00] LABS: Bacteria RARE /hpf (None Seen); Red Blood Cells-Urine 0-5 SEEN /hpf (0-5)
[2020-07-22 23:01] LABS: White Blood Cells 0-5 SEEN /hpf (0-5)
--- NOTE | 2020-07-22 23:34 | SEPSIS_ITS ---
Sepsis Note - Physical Exam/Vitals Objective: Brain CT 07/22/20 11:55 IMPRESSION: Changes involving the cerebellum and cerebral hemispheres and basal ganglia consistent with the decreased oxygenation and asphyxia. Electronically Signed: Americo Marlowkenia, at 12:43 EDT , Service support , Chest X-Ray 07/22/20 12:05 IMPRESSION: Bilateral perihilar airspace disease suggestive of pulmonary edema. The support tubes are in good position. Electronically Signed: Americo Jazz, at 12:44 EDT , Service support , Chest X-Ray 07/22/20 21:59 IMPRESSION: No significant change in moderate perihilar pulmonary edema Electronically Signed: Al Jane MD at 23:10 EDT , Service support , Temp Pulse Resp BP Pulse Ox 101.0 F H 96 14 94/63 100 07/22/20 21:00 07/22/20 21:00 07/22/20 21:00 07/22/20 21:55 07/22/20 21:00 07/22/20 07/22/20 07/22/20 22:20 21:25 20:25 WBC RBC Hgb Hct MCV MCH MCHC RDW Std Deviation RDW Coeff of Estefani Plt Count MPV Immature Gran % (Auto) Neut % (Auto) Lymph % (Auto) [place] % (Auto) Eos % (Auto) Baso % (Auto) Absolute Neuts (auto) Absolute Lymphs (auto) Nucleated RBC % Differential Comment PT INR APTT Specimen Type Sample Site pH Bicarbonate Actual Total CO2 Base Excess O2 Saturation O2 % ABG pCO2 ABG pO2 Ramiro Test Respiration Rate O2 Delivery Device Liter Flow Vent Mode Tidal Volume Blood Gas Notified Whom Blood Gas Notified Time Sodium 147 H Potassium 4.6 Chloride 119 H Carbon Dioxide 23.0 Anion Gap 5 BUN 49 H Creatinine 2.06 H Estim Creat Clear Calc 45.28 Est GFR (MDRD) Af Amer 45 L Est GFR (MDRD) Non-Af 37 L BUN/Creatinine Ratio 23.8 H Glucose 109 H Lactic Acid Calcium 7.0 L Total Bilirubin 1.10 H Direct Bilirubin 0.34 H AST 1143 H ALT 1310 H Alkaline Phosphatase 46 Total Creatine Kinase Troponin I 46.100 H* Total Protein 4.8 L Albumin 2.1 L Globulin 2.7 Albumin/Globulin Ratio 0.8 L Amylase 672 H Lipase 47 L Urine Color Yellow Urine Clarity Clear Urine pH 5.0 Ur Specific [place] 1.015 Urine Protein 30 H Urine Glucose (UA) Normal Urine Ketones Negative Urine Occult Blood 250 H Urine Nitrite Negative Urine Bilirubin Negative Urine Urobilinogen Normal Ur Leukocyte Esterase 25 H Urine RBC 0-5 SEEN Urine WBC 0-5 SEEN Ur Squamous Epith Cells 0 SEEN Urine Bacteria RARE Urine Mucus 0 SEEN Urine Opiates Screen Urine Methadone Screen Ur Barbiturates Screen Ur Phencyclidine Scrn Ur Amphetamines Screen U Methamphetamin-MDMA U Benzodiazepines Scrn Urine Cocaine Screen U Cannabinoids Screen Ur Drug Screen Comment Ethyl Alcohol COVID-19 (CRISTO) Pending 07/22/20 07/22/20 07/22/20 20:25 13:13 12:00 WBC RBC Hgb Hct MCV MCH MCHC RDW Std Deviation RDW Coeff of Estefani Plt Count MPV Immature Gran % (Auto) Neut % (Auto) Lymph % (Auto) [place] % (Auto) Eos % (Auto) Baso % (Auto) Absolute Neuts (auto) Absolute Lymphs (auto) Nucleated RBC % Differential Comment PT INR APTT Specimen Type ART Sample Site R Radial pH 7.37 Bicarbonate Actual 20.9 L Total CO2 22 Base Excess -4 L O2 Saturation 92 L O2 % 100 ABG pCO2 36.4 ABG pO2 66 L Ramiro Test Positive Respiration Rate 14.0000 O2 Delivery Device Adult Vent Liter Flow Vent Mode AC Tidal Volume 500 Blood Gas Notified Whom Blood Gas Notified Time Sodium Potassium Chloride Carbon Dioxide Anion Gap BUN Creatinine Estim Creat Clear Calc Est GFR (MDRD) Af Amer Est GFR (MDRD) Non-Af BUN/Creatinine Ratio Glucose Lactic Acid 2.5 H* 6.2 H* Calcium Total Bilirubin Direct Bilirubin AST ALT Alkaline Phosphatase Total Creatine Kinase Troponin I Total Protein Albumin Globulin Albumin/Globulin Ratio Amylase Lipase Urine Color Urine Clarity Urine pH Ur Specific [place] Urine Protein Urine Glucose (UA) Urine Ketones Urine Occult Blood Urine Nitrite Urine Bilirubin Urine Urobilinogen Ur Leukocyte Esterase Urine RBC Urine WBC Ur Squamous Epith Cells Urine Bacteria Urine Mucus Urine Opiates Screen Urine Methadone Screen Ur Barbiturates Screen Ur Phencyclidine Scrn Ur Amphetamines Screen U Methamphetamin-MDMA U Benzodiazepines Scrn Urine Cocaine Screen U Cannabinoids Screen Ur Drug Screen Comment Ethyl Alcohol COVID-19 (CRISTO) 07/22/20 07/22/20 07/22/20 12:00 11:53 11:53 WBC RBC Hgb Hct MCV MCH MCHC RDW Std Deviation RDW Coeff of Estefani Plt Count MPV Immature Gran % (Auto) Neut % (Auto) Lymph % (Auto) [place] % (Auto) Eos % (Auto) Baso % (Auto) Absolute Neuts (auto) Absolute Lymphs (auto) Nucleated RBC % Differential Comment PT 18.2 H INR 1.6 APTT QNS Specimen Type Sample Site pH Bicarbonate Actual Total CO2 Base Excess O2 Saturation O2 % ABG pCO2 ABG pO2 Ramiro Test Respiration Rate O2 Delivery Device Liter Flow Vent Mode Tidal Volume Blood Gas Notified Whom Blood Gas Notified Time Sodium Potassium Chloride Carbon Dioxide Anion Gap BUN Creatinine Estim Creat Clear Calc Est GFR (MDRD) Af Amer Est GFR (MDRD) Non-Af BUN/Creatinine Ratio Glucose Lactic Acid Calcium Total Bilirubin Direct Bilirubin AST ALT Alkaline Phosphatase Total Creatine Kinase Troponin I Total Protein Albumin Globulin Albumin/Globulin Ratio Amylase Lipase Urine Color Yellow Urine Clarity Clear Urine pH 5.0 Ur Specific [place] 1.025 Urine Protein 30 H Urine Glucose (UA) Normal Urine Ketones 15 H Urine Occult Blood 250 H Urine Nitrite Negative Urine Bilirubin Negative Urine Urobilinogen 1 H Ur Leukocyte Esterase 25 H Urine RBC 0-5 SEEN Urine WBC 0 SEEN Ur Squamous Epith Cells 0 SEEN Urine Bacteria 0 SEEN Urine Mucus 1+ Urine Opiates Screen NEGATIVE Urine Methadone Screen NEGATIVE Ur Barbiturates Screen NEGATIVE Ur Phencyclidine Scrn NEGATIVE Ur Amphetamines Screen POSITIVE H U Methamphetamin-MDMA POSITIVE H U Benzodiazepines Scrn NEGATIVE Urine Cocaine Screen NEGATIVE U Cannabinoids Screen NEGATIVE Ur Drug Screen Comment Ethyl Alcohol COVID-19 (CRISTO) 07/22/20 07/22/20 07/22/20 11:48 11:35 11:35 WBC RBC Hgb Hct MCV MCH MCHC RDW Std Deviation RDW Coeff of Estefani Plt Count MPV Immature Gran % (Auto) Neut % (Auto) Lymph % (Auto) [place] % (Auto) Eos % (Auto) Baso % (Auto) Absolute Neuts (auto) Absolute Lymphs (auto) Nucleated RBC % Differential Comment PT INR APTT Specimen Type ART Sample Site L RADIAL pH 7.40 Bicarbonate Actual 20.5 L Total CO2 22 Base Excess -4 L O2 Saturation 71 L O2 % ABG pCO2 33.0 L ABG pO2 37 L* Ramiro Test POS Respiration Rate O2 Delivery Device Nasal Can Liter Flow 4.0 Vent Mode Tidal Volume Blood Gas Notified Whom ED Blood Gas Notified Time 1155 Sodium Potassium Chloride Carbon Dioxide Anion Gap BUN Creatinine Estim Creat Clear Calc Est GFR (MDRD) Af Amer Est GFR (MDRD) Non-Af BUN/Creatinine Ratio Glucose Lactic Acid Calcium Total Bilirubin Direct Bilirubin AST ALT Alkaline Phosphatase Total Creatine Kinase 19925 H Troponin I Total Protein Albumin Globulin Albumin/Globulin Ratio Amylase Lipase Urine Color Urine Clarity Urine pH Ur Specific [place] Urine Protein Urine Glucose (UA) Urine Ketones Urine Occult Blood Urine Nitrite Urine Bilirubin Urine Urobilinogen Ur Leukocyte Esterase Urine RBC Urine WBC Ur Squamous Epith Cells Urine Bacteria Urine Mucus Urine Opiates Screen Urine Methadone Screen Ur Barbiturates Screen Ur Phencyclidine Scrn Ur Amphetamines Screen U Methamphetamin-MDMA U Benzodiazepines Scrn Urine Cocaine Screen U Cannabinoids Screen Ur Drug Screen Comment Ethyl Alcohol < 3.0 COVID-19 ([facility]) 07/22/20 07/22/20 11:35 11:35 WBC 13.8 H RBC 6.08 Hgb 16.9 H Hct 51.0 MCV 83.9 MCH 27.8 MCHC 33.1 RDW Std Deviation 42.8 RDW Coeff of Esetfani 14.2 Plt Count 285 MPV 10.1 Immature Gran % (Auto) 0.400 Neut % (Auto) 84.3 H Lymph % (Auto) 10.4 L [place] % (Auto) 2.9 Eos % (Auto) 1.1 Baso % (Auto) 0.9 Absolute Neuts (auto) 11.6 H Absolute Lymphs (auto) 1.44 Nucleated RBC % 0 Differential Comment SCANNED PT INR APTT Specimen Type Sample Site pH Bicarbonate Actual Total CO2 Base Excess O2 Saturation O2 % ABG pCO2 ABG pO2 Ramiro Test Respiration Rate O2 Delivery Device Liter Flow Vent Mode Tidal Volume Blood Gas Notified Whom Blood Gas Notified Time Sodium 143 Potassium 4.6 Chloride 109 H Carbon Dioxide 20.0 L Anion Gap 14 BUN 56 H Creatinine 2.74 H Estim Creat Clear Calc 34.04 Est GFR (MDRD) Af Amer 32 L Est GFR (MDRD) Non-Af 27 L BUN/Creatinine Ratio 20.4 H Glucose 131 H Lactic Acid Calcium 9.1 Total Bilirubin 1.80 H Direct Bilirubin AST 1797 H ALT 1800 H Alkaline Phosphatase 74 Total Creatine Kinase Troponin I 34.600 H* Total Protein 7.6 Albumin 3.3 Globulin 4.3 H Albumin/Globulin Ratio 0.8 L Amylase Lipase 61 L Urine Color Urine Clarity Urine pH Ur Specific [place] Urine Protein Urine Glucose (UA) Urine Ketones Urine Occult Blood Urine Nitrite Urine Bilirubin Urine Urobilinogen Ur Leukocyte Esterase Urine RBC Urine WBC Ur Squamous Epith Cells Urine Bacteria Urine Mucus Urine Opiates Screen Urine Methadone Screen Ur Barbiturates Screen Ur Phencyclidine Scrn Ur Amphetamines Screen U Methamphetamin-MDMA U Benzodiazepines Scrn Urine Cocaine Screen U Cannabinoids Screen Ur Drug Screen Comment Ethyl Alcohol COVID-19 (CRISTO) General: - - comatose Lungs: Clear to auscultation Cardiovascular: Regular rate, Normal S1, Normal S2 Capillary Refill: cool lower feet Peripheral Pulses: Diminished Skin Color: [place] - Attestation Sepsis Attestation: Sepsis re-evaluation was performed
[2020-07-22 23:45] LABS: Base Excess -2 mmol/L (-2 to +2); Bicarbonate 23.7 mmol/L (22-26); Blood Gas Specimen Type ART; FI02 80; Mode AC; O2 Delivery Device Adult Vent; PO2 189 mmHG (75-100); SITE Art Line; SO2 100 % (95-99); Total Carbon Dioxide 25 mmol/L; Vt 550; pCO2 45.4 mmHg (35-45); pH 7.33 (7.35-7.45)
--- NOTE | 2020-07-22 23:58 | PCM.PN.BLA ---
Progress Note Patient is comatose. Pupils are dilated and does not respond to lights. Patient has no gag reflex. Heart sounds S1-S2 present peripheral pulses diminished. Bilateral feet are cold and pale. Lung sounds are present. Troponin increased from 34.6-46.1. Septic shock Anoxic brain injury On ventilator Discussed with cardiology. We continue supportive care at this time. With fever, elevated white count and perihilar infiltrate, rule out pneumonia, gram-positive or gram-negative. Because of JONEL will avoid nephrotoxic drugs. Linezolid, cefepime and clindamycin IV ordered. Nurse reported patient has put out 1900 mL's by a Brown catheter. DDAVP ordered for possible diabetic insipidus. Critical care: Thirty-five( 35 ) minutes from [id number] 07-22-2020. This involved time at the bedside, discussing with consultants, review of charts, discussing with nursing team. STROKE Vital Signs/Narrative: Vital Signs Temp Pulse Resp BP Pulse Ox 07/22/20 21:55 94/63 07/22/20 21:50 101/72 07/22/20 21:45 93/61 07/22/20 21:40 85/58 L 07/22/20 21:25 103/65 07/22/20 21:20 95/67 07/22/20 21:15 77/46 L 07/22/20 21:10 86/62 L 07/22/20 21:05 111/70 07/22/20 21:00 101.0 F H 96 14 83/52 L 100 07/22/20 20:50 87/52 L 07/22/20 20:45 101.0 F H 97 14 94/70 100 07/22/20 20:40 123/90 H 07/22/20 20:35 91/75 07/22/20 20:30 101.1 F H 98 14 89/71 L 100 07/22/20 20:25 68/53 L 07/22/20 20:15 101.2 F H 96 14 89/73 L 100 07/22/20 20:10 95/72 07/22/20 20:05 74/53 L 07/22/20 20:00 101.6 F H 90 14 50/37 L 100 07/22/20 19:59 91 Procedures: [id number] Critial Care 1st Hr
[2020-07-23] VITALS (49 sets, daily range): BP systolic 99–229; BP diastolic 63–133; PULSE 84–120; RESP 14–15; TEMP 36.1–38.7; O2SAT 84–100
[2020-07-23] MEDS: Linezolid 600 MG 600 MG/300 ML BAG 200 MG IV ×3 (00:09→23:01)
[2020-07-23 00:40] LABS: Magnesium 1.9 mg/dL (1.6-2.6)
[2020-07-23 02:11] LABS: M R Staph aureus DNA By PCR Negative (Negative); Probe Check PASS; Specimen Processing Control PASS
[2020-07-23] MEDS: Desmopressin Acetate 40 MCG/10 ML Vial IV (03:20)
[2020-07-23 03:40] LABS: Absolute Lymphocyte Count 1.74 X10^3/uL (0.83-4.51); Absolute Neutrophil Count 7.9 X10^3/uL (2.0-7.7); Basophil# 0.05 X10^3/uL; Basophil% 0.5 % (0-1); Eosinophil# 0.03 X10^3/uL; Eosinophils% 0.3 % (0-5); Hematocrit 40.9 % (40-54); Hemoglobin 13.3 g/dL (13.0-16.5); Lymphocyte # 1.74 X10^3/ul (4.0); Lymphocyte % 17.1 % (19-41); Mean Corp Hgb Conc 32.5 g/dL (32-36); Mean Corpuscular Hgb 27.7 pg (27.0-32.0); Mean Platelet Vol. 9.8 fl (6.2-12.0); Monocyte# 0.42 X10^3/uL; Monocyte% 4.1 % (0-10); NRBC Flagged by Analyzer 0 % (0-5); Neutrophil # 7.91 X10^3/uL (2.7-7.7); Neutrophil % 77.6 % (47-70); POSITIVE MORPHOLOGY YES; Platelet Count 204 K/mm3 (150-450); RBC Distribution Width CV 14.4 % (11.6-14.6); RBC Distribution Width SD 44.8 fl (35.1-43.9); Red Blood Count 4.81 M/mm3 (4.6-6.2); White Blood Count 10.2 K/mm3 (4.4-11.0)
[2020-07-23 04:07] LABS: Differential Indicated SCAN CRITERIA MET
[2020-07-23 04:08] LABS: Differential Comment SCANNED
[2020-07-23 04:36] LABS: ALB/GLOB Ratio 0.7 RATIO (0.9-2.4); AST(SGOT) 1104 U/L (15-37); Alanine Aminotransfer ALT/SGPT 1650 U/L (16-61); Albumin, Serum 2.4 g/dL (3.2-5.0); Alkaline Phosphatase 56 U/L (45-117); Anion Gap 4 (5-15); BUN 37 mg/dL (7-18); BUN/Creat Ratio 26.6 RATIO (10-20); Bilirubin, Direct 0.39 mg/dL (0.00-0.30); CPK Total, Creatine Kinase 6310 U/L (39-308); Calcium,Total 8.3 mg/dL (8.5-10.1); Chloride 122 mmol/L (98-107); Creatinine, Serum 1.39 mg/dL (0.70-1.30); EST Glomerular Filtration Rate 58 mL/min (>60); Est Glom Filt Rate - Afr Amer 70 mL/min (>60); Estimated Creatinine Clearance 67.11 ml/min; Globulin 3.3 g/dL (2.2-4.2); Glucose 110 mg/dL (74-106); Magnesium 2.4 mg/dL (1.6-2.6); Potassium 4.4 mmol/L (3.5-5.1); Protein, Total 5.7 g/dL (6.4-8.2); Sodium Level 152 mmol/L (136-145)
[2020-07-23] MEDS: Heparin Injection (Vial) 5,000 UNIT/ML VIAL 5000 UNIT SC ×3 (06:10→22:04)
[2020-07-23] MEDS: Labetalol (Prefilled) 20 MG/4 ML 5 MG IV ×3 (06:50→10:09)
[2020-07-23] MEDS: 0.9% Saline Lock 10 ML Syringe IV (06:58)
--- NOTE | 2020-07-23 07:53 | PCM.CON.CC ---
Problem List (1) Septic shock Status: Acute (2) Suicidal ideation Status: Acute (3) Cerebral infarction Status: Acute (4) Rhabdomyolysis Status: Acute (5) NSTEMI (non-ST elevated myocardial infarction) Status: Acute (6) Acute renal failure Status: Acute (7) Shock liver Status: Acute (8) Methamphetamine abuse Status: Acute Reason for Consult Date of Consultation: 07/23/20 Reason for Consultation: Respiratory failure History of Present Illness: The patient is a 50 year old M, with unclear past medical history, who presented to [facility] on 07/22/2020 after EMS was called by a friend for respiratory distress. Patient reportedly has a drug history and was found to have pinpoint pupils with diaphoresis. Patient was also tachypneic and tachycardic, but failed to respond to 3 rounds of Narcan. Patient was transported to the ER and was intubated immediately. Prehospital details are convoluted at this time. Patient is currently intubated and unresponsive on no sedation. On arrival to the intensive care unit, patient was extremely hypotensive with blood pressures of 40/20. Patient was initiated on peripheral Levophed, but continued to be hypotensive. Hospitalist placed a central line, but reportedly was unable to place on the left. There was a hematoma associated with this attempt. Patient did develop significant urine output overnight that responded well to DDAVP. Patient has had a variable neurologic exam overnight with intermittent loss of cranial reflexes. Patient is still localizing to painful stimuli and will occasionally cough. Pupils remain dilated, but are not fixed. This morning, patient has had problems with hypertension with blood pressures in the 180s over 110s that have been responsive to labetalol. [employer] is following. Unable to obtain a review of systems. Past Medical History Allergies No Known Allergies Allergy (Verified 04/21/20 12:20) Home Medications: Ambulatory Orders Medication Instructions Recorded Loratadine/Pseudoephedrine 1 tab PO DAILY PRN PRN 07/22/20 [Claritin-D 24 Hour Tablet] Surgical History: - - Unable to obtain Psychiatric History: Depression Smoking Status: Current every day smoker Tobacco Use: - - unknown Drugs: - - polysubstance abuse Review of Systems Unable to obtain accurate/complete ROS d/t: Intubated and neurologic status Patient Problems: Active and Suspected Problems Septic shock (Acute) Acute respiratory failure (Acute) Cerebral infarction (Acute) Rhabdomyolysis (Acute) NSTEMI (non-ST elevated myocardial infarction) (Acute) Acute renal failure (Acute) Shock liver (Acute) Methamphetamine abuse (Acute) Objective: All imaging was personally reviewed. CT of the head shows significant cerebellar changes consistent with asphyxia with loss of garduno-white differentiation. Chest x-rays were reviewed and shows significant perihilar pulmonary edema with supportive devices in appropriate position. - Physical Exam Vitals/I&O's: Vital Signs Temp Pulse Resp BP Pulse Ox 36.4 C L 106 H 14 119/75 96 07/23/20 07:00 07/23/20 07:33 07/23/20 07:00 07/23/20 07:00 07/23/20 07:00 Oxygen Delivery Method Mechanical Ventilator Weight: 88.5 kg Body Mass Index (BMI) 29.4 Intake and Output for Last 24 Hours 07/21/20 07/22/20 07/23/20 23:59 23:59 23:59 Intake Total 5233.80 / 5233.80 608 / 608 Output Total 600 / 850 3550 / 3550 Balance 4633.80 / 4383.80 -2942 / -2942 General: - - Unresponsive. Good vent synchrony noted. HEENT: PERRLA, EOMI, Normocephalic, - - Some swelling noted over the left neck Oral: No Gingival or Mucosal Lesions/ Ulcerations, Dry Mucosa Neck: Supple, No Nodes, Trachea Midline, - - JVD difficult to assess secondary to left neck swelling and right central line Lungs: No wheeze, Diminished, Rhonchi, - - Symmetric expansion. Cardiovascular: Regular Rhythm, Normal S1, Normal S2, No murmurs, No rub noted, No Gallop, Tachycardic Abdomen: Bowel Sounds Present, Soft, Non Tender, Non-Distended Extremities: No clubbing, No cyanosis, Edema - Trace Skin: No rashes, No breakdown, - - Unable to note any needle montes. No ligature montes appreciated. Musculoskeletal: No Tenderness to Palpation of Joints or Extremities Lymphatic: No Cervical, Supraclavicular, or Inguinal Adenopathy Neurological: - - Localizes pain to the left upper extremity. No cough or gag noted. Some pupillary response, but still dilated. Psych/Mental Status: Flat Affect Laboratory Results 07/22/20 11:35: WBC 13.8 H, RBC 6.08, Hgb 16.9 H, Hct 51.0, MCV 83.9, MCH 27.8, MCHC 33.1, RDW Std Deviation 42.8, RDW Coeff of Estefani 14.2, Plt Count 285, MPV 10.1, Immature Gran % (Auto) 0.400, Neut % (Auto) 84.3 H, Lymph % (Auto) 10.4 L, [place] % (Auto) 2.9, Eos % (Auto) 1.1, Baso % (Auto) 0.9, Absolute Neuts (auto) 11.6 H, Absolute Lymphs (auto) 1.44, Nucleated RBC % 0, Differential Comment SCANNED 07/22/20 11:35: Sodium 143, Potassium 4.6, Chloride 109 H, Carbon Dioxide 20.0 L, Anion Gap 14, BUN 56 H, Creatinine 2.74 H, Estim Creat Clear Calc 34.04, Est GFR (MDRD) Af Amer 32 L, Est GFR (MDRD) Non-Af 27 L, BUN/Creatinine Ratio 20.4 H, Glucose 131 H, Calcium 9.1, Total Bilirubin 1.80 H, AST 1797 H, ALT 1800 H, Alkaline Phosphatase 74, Troponin I 34.600 H*, Total Protein 7.6, Albumin 3.3, Globulin 4.3 H, Albumin/Globulin Ratio 0.8 L, Lipase 61 L 07/22/20 11:35: Ethyl Alcohol < 3.0 07/22/20 11:35: Total Creatine Kinase 36402 H 07/22/20 11:48: Specimen Type ART, Sample Site L RADIAL, pH 7.40, Bicarbonate Actual 20.5 L, Total CO2 22, Base Excess -4 L, O2 Saturation 71 L, ABG pCO2 33.0 L, ABG pO2 37 L*, Ramiro Test POS, O2 Delivery Device Nasal Can, Liter Flow 4.0, Blood Gas Notified Whom ED , Blood Gas Notified Time 1155 07/22/20 11:53: Urine Color Yellow, Urine Clarity Clear, Urine pH 5.0, Ur Specific [place] 1.025, Urine Protein 30 H, Urine Glucose (UA) Normal, Urine Ketones 15 H, Urine Occult Blood 250 H, Urine Nitrite Negative, Urine Bilirubin Negative, Urine Urobilinogen 1 H, Ur Leukocyte Esterase 25 H, Urine RBC 0-5 SEEN, Urine WBC 0 SEEN, Ur Squamous Epith Cells 0 SEEN, Urine Bacteria 0 SEEN, Urine Mucus 1+ 07/22/20 11:53: Urine Opiates Screen NEGATIVE, Urine Methadone Screen NEGATIVE, Ur Barbiturates Screen NEGATIVE, Ur Phencyclidine Scrn NEGATIVE, Ur Amphetamines Screen POSITIVE H, U Methamphetamin-MDMA POSITIVE H, U Benzodiazepines Scrn NEGATIVE, Urine Cocaine Screen NEGATIVE, U Cannabinoids Screen NEGATIVE, Ur Drug Screen Comment 07/22/20 12:00: PT 18.2 H, INR 1.6, APTT QNS 07/22/20 12:00: Lactic Acid 6.2 H* 07/22/20 13:13: Specimen Type ART, Sample Site R Radial, pH 7.37, Bicarbonate Actual 20.9 L, Total CO2 22, Base Excess -4 L, O2 Saturation 92 L, O2 % 100, ABG pCO2 36.4, ABG pO2 66 L, Ramiro Test Positive, Respiration Rate 14.0000, O2 Delivery Device Adult Vent, Vent Mode AC, Tidal Volume 500 07/22/20 20:25: Lactic Acid 2.5 H* 07/22/20 20:25: Sodium 147 H, Potassium 4.6, Chloride 119 H, Carbon Dioxide 23.0, Anion Gap 5, BUN 49 H, Creatinine 2.06 H, Estim Creat Clear Calc 45.28, Est GFR (MDRD) Af Amer 45 L, Est GFR (MDRD) Non-Af 37 L, BUN/Creatinine Ratio 23.8 H, Glucose 109 H, Calcium 7.0 L, Total Bilirubin 1.10 H, Direct Bilirubin 0.34 H, AST 1143 H, ALT 1310 H, Alkaline Phosphatase 46, Troponin I 46.100 H*, Total Protein 4.8 L, Albumin 2.1 L, Globulin 2.7, Albumin/Globulin Ratio 0.8 L, Amylase 672 H, Lipase 47 L 07/22/20 21:25: COVID-19 ([facility]) Not Detected 07/22/20 22:20: Urine Color Yellow, Urine Clarity Clear, Urine pH 5.0, Ur Specific [place] 1.015, Urine Protein 30 H, Urine Glucose (UA) Normal, Urine Ketones Negative, Urine Occult Blood 250 H, Urine Nitrite Negative, Urine Bilirubin Negative, Urine Urobilinogen Normal, Ur Leukocyte Esterase 25 H, Urine RBC 0-5 SEEN, Urine WBC 0-5 SEEN, Ur Squamous Epith Cells 0 SEEN, Urine Bacteria RARE, Urine Mucus 0 SEEN 07/22/20 23:30: Troponin I 33.400 H* 07/22/20 23:30: Phosphorus 3.0, Magnesium 1.9 07/22/20 23:39: Specimen Type ART, Sample Site Art Line, pH 7.33 L, Bicarbonate Actual 23.7, Total CO2 25, Base Excess -2, O2 Saturation 100 H, O2 % 80, ABG pCO2 45.4 H, ABG pO2 189 H, Respiration Rate 14.0000, O2 Delivery Device Adult Vent, Vent Mode AC, Tidal Volume 550 07/23/20 00:15: MRSA (PCR) Negative 07/23/20 00:30: Blood Type O POSITIVE, Antibody Screen NEGATIVE 07/23/20 03:30: Troponin I 32.800 H* 07/23/20 03:30: WBC 10.2, RBC 4.81, Hgb 13.3, Hct 40.9, MCV 85.0, MCH 27.7, MCHC 32.5, RDW Std Deviation 44.8 H, RDW Coeff of Estefani 14.4, Plt Count 204, MPV 9.8, Immature Gran % (Auto) 0.400, Neut % (Auto) 77.6 H, Lymph % (Auto) 17.1 L, [place] % (Auto) 4.1, Eos % (Auto) 0.3, Baso % (Auto) 0.5, Absolute Neuts (auto) 7.9 H, Absolute Lymphs (auto) 1.74, Nucleated RBC % 0, Differential Comment SCANNED 07/23/20 03:30: Sodium 152 H, Potassium 4.4, Chloride 122 H, Carbon Dioxide 26.0, Anion Gap 4 L, BUN 37 H, Creatinine 1.39 H, Estim Creat Clear Calc 67.11, Est GFR (MDRD) Af Amer 70, Est GFR (MDRD) Non-Af 58 L, BUN/Creatinine Ratio 26.6 H, Glucose 110 H, Calcium 8.3 L, Phosphorus 3.0, Magnesium 2.4, Total Bilirubin 1.40 H, Direct Bilirubin 0.39 H, AST 1104 H, ALT 1650 H, Alkaline Phosphatase 56, Total Creatine Kinase 6310 H, Total Protein 5.7 L, Albumin 2.4 L, Globulin 3.3, Albumin/Globulin Ratio 0.7 L Current Medications Chlorhexidine Gluconate () 15 ml PO BID [facility] Last Admin: 07/22/20 20:15 Dose: 15 ml Documented by: Desmopressin Acetate (Ddavp Md Vial) 2 mcg IV Q12 [facility] Last Admin: 07/23/20 03:20 Dose: 2 mcg Documented by: Heparin Sodium (Porcine) (Heparin Na) 5,000 unit SC Q8 [facility] Last Admin: 07/23/20 06:10 Dose: 5,000 unit Documented by: Hydromorphone HCl (Dilaudid Inj) 1 mg IV Q4H PRN PRN PRN Reason: Pain or sedation Lactated Ringer's () 1,000 mls @ 75 mls/hr IV .[id number] [facility] Last Admin: 07/23/20 05:51 Dose: Not Given Documented by: Norepinephrine Bitartrate 8 mg (/ Sodium Chloride) 250 mls @ 9.375 mls/hr CONT INF .[id number] [facility]; Protocol Last Titration: 07/23/20 03:00 Dose: 0 mcg/min, 0 mls/hr Documented by: Sodium Chloride () 250 mls @ 15 mls/hr IV .[id number] PRN PRN Reason: Saline Flush Sodium Chloride () 250 mls @ 15 mls/hr IV .[id number] PRN PRN Reason: Additional IVPB Infusion Vasopressin 20 units/ Sodium (Chloride) 25 mls @ 3 mls/hr IV .[id number] [facility] Last Admin: 07/23/20 04:50 Dose: Not Given Documented by: Linezolid (Zyvox 600mg) 600 mg in 300 mls @ 200 mls/hr IV Q12 [facility] Last Infusion: 07/23/20 01:39 Dose: Infused Documented by: Cefepime HCl 2 gm/ Sodium (Chloride) 100 mls @ 200 mls/hr IV Q8 [facility] Last Infusion: 07/23/20 07:01 Dose: Infused Documented by: Clindamycin Phosphate 600 mg/ (Dextrose) 54 mls @ 100 mls/hr IV Q8 [facility] Last Infusion: 07/23/20 07:00 Dose: Infused Documented by: Pantoprazole Sodium 40 mg/ (Sodium Chloride) 110 mls @ 330 mls/hr IV Q24 [facility] Labetalol HCl (Trandate) 20 mg IV Q4H PRN PRN PRN Reason: sbp>160 Last Admin: 07/22/20 17:20 Dose: 20 mg Documented by: Sodium Chloride () 10 - 40 ml IV UD PRN PRN Reason: SALINE FLUSH Last Admin: 07/23/20 06:58 Dose: 40 ml Documented by: Clinical Impression(s) from Imaging Studies Brain CT 07/22/20 11:55 IMPRESSION: Changes involving the cerebellum and cerebral hemispheres and basal ganglia consistent with the decreased oxygenation and asphyxia. Electronically Signed: Americo Schulz, at 12:43 EDT , Service support , Chest X-Ray 07/22/20 12:05 IMPRESSION: Bilateral perihilar airspace disease suggestive of pulmonary edema. The support tubes are in good position. Electronically Signed: Americo Schulz at 12:44 EDT , Service support , Chest X-Ray 07/22/20 21:59 IMPRESSION: No significant change in moderate perihilar pulmonary edema Electronically Signed: Al Jane MD at 23:10 EDT , Service support , Assessment/Plan Active and Suspected Problems Septic shock (Acute) Acute respiratory failure (Acute) Cerebral infarction (Acute) Rhabdomyolysis (Acute) NSTEMI (non-ST elevated myocardial infarction) (Acute) Acute renal failure (Acute) Shock liver (Acute) Methamphetamine abuse (Acute) RECOMMENDATIONS: 1. Continue aggressive blood pressure control 2. DDAVP as necessary for urine output 3. Frequent neurologic checks 4. Anticipate confirmatory apnea test if loses cranial reflexes 5. Possible DCD per life [facility] 6. Okay to continue empiric antibiotics for now IMPRESSIONS: 1. Anoxic encephalopathy with bilateral cerebellar infarction secondary to presumed drug overdose Exact etiology is unclear at this time. Patient does have significant findings in the cerebellar region of anoxia. Cerebral changes are relatively minimal. Patient has lost significant cranial reflexes, but still has some element of brain function. We will continue to monitor frequent neurologic checks. If patient loses reflexes, apnea test can be performed. [facility] is involved at this time. Patient did develop diabetes insipidus overnight that responded well to DDAVP indicating a central etiology. 2. Shock liver/rhabdomyolysis Clinical suspicion for significant shock liver and rhabdomyolysis secondary to delayed presentation. Total CK has significantly improved, but liver enzymes do remain relatively elevated. Lactic acid is likely improving secondary to better perfusion. We will continue supportive measures. 3. Non-ST elevation AK Patient with persistently elevated troponins throughout the hospitalization. Blood pressures appear to be adequate at this time. Cardiac donation is not being recommended at this time per the information available. We will hold off on any echocardiogram or heart catheterization given goals of therapy. Patient does have bilateral infiltrates. It is unclear if this is related to pulmonary edema versus aspiration. Patient is on appropriate antibiotics with normalization of white blood cell count today. 4. Acute kidney injury Significant improvement in renal function following stabilization of hemodynamics. Patient has had some hypernatremia and hyperchloremia resolved, likely secondary to resuscitation and diabetes insipidus. Patient has been given DDAVP with improvement. This would indicate a central origin. 5. Polysubstance abuse/poor history/central diabetes insipidus Complicates care, management, recovery and prognosis. Appropriate parties have been informed of the events leading to hospitalization. Family is pursuing organ donation if possible. [facility] is involved. Current directive indicates that patient will not be resuscitated if he codes while on the ventilator. TIME: 45 minutes critical care time spent addressing patient's anoxic encephalopathy, shock liver, non-ST elevation AK, acute kidney injury, review of all data and collaboration with care team (7 AM to 8:10 AM) 9xxxx: [id number] Critical care first hour
[2020-07-23] MEDS: hydrALAZINE 10 MG Tablet PO (08:49)
[2020-07-23] MEDS: Lactated Ringers 1,000 ML 75 ML IV ×2 (09:42→22:23)
[2020-07-23] MEDS: Chlorhexidine 15 ML PO ×2 (10:09→22:13)
--- NOTE | 2020-07-23 10:25 | CASEMGMT ---
This RN CM participated in ICU multidisciplinary rounds. [facility] is here and attempting to facilitate organ donation at this time. Pt did have spontaneous breaths with apnea trial this am but sats dropped into the 70's immediately per respiratory. CM to follow for any further needs. SStaten RN CM
--- NOTE | 2020-07-23 11:46 | NURSING ---
Cardene bag hung at this time, bag appearing wet so this RN squeezed bag and identified puncture hole in front of bag. Infusion stopped and notified pharmacy of need for new bag of cardene.
--- NOTE | 2020-07-23 13:53 | PCM.PN.HOSP ---
Patient Problems: Active and Suspected Problems Septic shock (Acute) Acute respiratory failure (Acute) Cerebral infarction (Acute) Rhabdomyolysis (Acute) NSTEMI (non-ST elevated myocardial infarction) (Acute) Acute renal failure (Acute) Shock liver (Acute) Methamphetamine abuse (Acute) Subjective: Still breathing after apnea test. Vitals/I&O's: Vital Signs Temp Pulse Resp BP Pulse Ox 36.1 C L 111 H 15 124/81 H 93 07/23/20 13:29 07/23/20 13:29 07/23/20 13:29 07/23/20 13:29 07/23/20 13:29 Oxygen Delivery Method Mechanical Ventilator Weight: 88.5 kg Body Mass Index (BMI) 29.4 Intake and Output for Last 24 Hours 07/21/20 07/22/20 07/23/20 23:59 23:59 23:59 Intake Total 5233.80 / 5233.80 2066.33 / 2066.33 Output Total 600 / 850 4550 / 4550 Balance 4633.80 / 4383.80 -2483.67 / -2483.67 General: - - unresponsive HEENT: - - dilated pupil Neck: No Nodes, Thyroid Normal Size and Texture Lungs: - - coarse breath sounds Cardiovascular: Regular rate, Regular Rhythm, Normal S1, Normal S2 Abdomen: Bowel Sounds Present, Soft, Non Tender, Non-Distended Extremities: No edema, No Calf Tenderness Laboratory Results 07/22/20 20:25: Lactic Acid 2.5 H* 07/22/20 20:25: Sodium 147 H, Potassium 4.6, Chloride 119 H, Carbon Dioxide 23.0, Anion Gap 5, BUN 49 H, Creatinine 2.06 H, Estim Creat Clear Calc 45.28, Est GFR (MDRD) Af Amer 45 L, Est GFR (MDRD) Non-Af 37 L, BUN/Creatinine Ratio 23.8 H, Glucose 109 H, Calcium 7.0 L, Total Bilirubin 1.10 H, Direct Bilirubin 0.34 H, AST 1143 H, ALT 1310 H, Alkaline Phosphatase 46, Troponin I 46.100 H*, Total Protein 4.8 L, Albumin 2.1 L, Globulin 2.7, Albumin/Globulin Ratio 0.8 L, Amylase 672 H, Lipase 47 L 07/22/20 21:25: COVID-19 ([facility]) Not Detected 07/22/20 22:20: Urine Color Yellow, Urine Clarity Clear, Urine pH 5.0, Ur Specific [place] 1.015, Urine Protein 30 H, Urine Glucose (UA) Normal, Urine Ketones Negative, Urine Occult Blood 250 H, Urine Nitrite Negative, Urine Bilirubin Negative, Urine Urobilinogen Normal, Ur Leukocyte Esterase 25 H, Urine RBC 0-5 SEEN, Urine WBC 0-5 SEEN, Ur Squamous Epith Cells 0 SEEN, Urine Bacteria RARE, Urine Mucus 0 SEEN 07/22/20 23:30: Troponin I 33.400 H* 07/22/20 23:30: Phosphorus 3.0, Magnesium 1.9 07/22/20 23:39: Specimen Type ART, Sample Site Art Line, pH 7.33 L, Bicarbonate Actual 23.7, Total CO2 25, Base Excess -2, O2 Saturation 100 H, O2 % 80, ABG pCO2 45.4 H, ABG pO2 189 H, Respiration Rate 14.0000, O2 Delivery Device Adult Vent, Vent Mode AC, Tidal Volume 550 07/23/20 00:15: MRSA (PCR) Negative 07/23/20 00:30: Blood Type O POSITIVE, Antibody Screen NEGATIVE 07/23/20 03:30: Troponin I 32.800 H* 07/23/20 03:30: WBC 10.2, RBC 4.81, Hgb 13.3, Hct 40.9, MCV 85.0, MCH 27.7, MCHC 32.5, RDW Std Deviation 44.8 H, RDW Coeff of Estefani 14.4, Plt Count 204, MPV 9.8, Immature Gran % (Auto) 0.400, Neut % (Auto) 77.6 H, Lymph % (Auto) 17.1 L, [place] % (Auto) 4.1, Eos % (Auto) 0.3, Baso % (Auto) 0.5, Absolute Neuts (auto) 7.9 H, Absolute Lymphs (auto) 1.74, Nucleated RBC % 0, Differential Comment SCANNED 07/23/20 03:30: Sodium 152 H, Potassium 4.4, Chloride 122 H, Carbon Dioxide 26.0, Anion Gap 4 L, BUN 37 H, Creatinine 1.39 H, Estim Creat Clear Calc 67.11, Est GFR (MDRD) Af Amer 70, Est GFR (MDRD) Non-Af 58 L, BUN/Creatinine Ratio 26.6 H, Glucose 110 H, Calcium 8.3 L, Phosphorus 3.0, Magnesium 2.4, Total Bilirubin 1.40 H, Direct Bilirubin 0.39 H, AST 1104 H, ALT 1650 H, Alkaline Phosphatase 56, Total Creatine Kinase 6310 H, Total Protein 5.7 L, Albumin 2.4 L, Globulin 3.3, Albumin/Globulin Ratio 0.7 L Current Medications Chlorhexidine Gluconate () 15 ml PO BID [facility] Last Admin: 07/23/20 10:09 Dose: 15 ml Documented by: Desmopressin Acetate (Ddavp Md Vial) 2 mcg IV Q12 [facility] Last Admin: 07/23/20 03:20 Dose: 2 mcg Documented by: Heparin Sodium (Porcine) (Heparin Na) 5,000 unit SC Q8 [facility] Last Admin: 07/23/20 06:10 Dose: 5,000 unit Documented by: Hydromorphone HCl (Dilaudid Inj) 1 mg IV Q4H PRN PRN PRN Reason: Pain or sedation Lactated Ringer's () 1,000 mls @ 75 mls/hr IV .[id number] [facility] Last Admin: 07/23/20 09:42 Dose: 75 mls/hr Documented by: Norepinephrine Bitartrate 8 mg (/ Sodium Chloride) 250 mls @ 9.375 mls/hr CONT INF .[id number] [facility]; Protocol Last Titration: 07/23/20 03:00 Dose: 0 mcg/min, 0 mls/hr Documented by: Sodium Chloride () 250 mls @ 15 mls/hr IV .[id number] PRN PRN Reason: Saline Flush Sodium Chloride () 250 mls @ 15 mls/hr IV .[id number] PRN PRN Reason: Additional IVPB Infusion Vasopressin 20 units/ Sodium (Chloride) 25 mls @ 3 mls/hr IV .[id number] [facility] Last Admin: 07/23/20 13:52 Dose: Not Given Documented by: Linezolid (Zyvox 600mg) 600 mg in 300 mls @ 200 mls/hr IV Q12 [facility] Last Infusion: 07/23/20 11:36 Dose: Infused Documented by: Cefepime HCl 2 gm/ Sodium (Chloride) 100 mls @ 200 mls/hr IV Q8 [facility] Last Infusion: 07/23/20 07:01 Dose: Infused Documented by: Clindamycin Phosphate 600 mg/ (Dextrose) 54 mls @ 100 mls/hr IV Q8 [facility] Last Infusion: 07/23/20 07:00 Dose: Infused Documented by: Pantoprazole Sodium 40 mg/ (Sodium Chloride) 110 mls @ 330 mls/hr IV Q24 [facility] Last Infusion: 07/23/20 10:29 Dose: Infused Documented by: Nicardipine HCl 25 mg/ Sodium (Chloride) 250 mls @ 50 mls/hr CONT INF .Q5H [facility]; Protocol Last Titration: 07/23/20 13:00 Dose: 0 mg/hr, 0 mls/hr Documented by: Labetalol HCl (Trandate) 20 mg IV Q4H PRN PRN PRN Reason: sbp>160 Last Admin: 07/22/20 17:20 Dose: 20 mg Documented by: Sodium Chloride () 10 - 40 ml IV UD PRN PRN Reason: SALINE FLUSH Last Admin: 07/23/20 06:58 Dose: 40 ml Documented by: STROKE Vital Signs/Narrative: Vital Signs Temp Pulse Resp BP BP Pulse Ox 07/23/20 13:29 36.1 C L 111 H 15 124/81 H 93 07/23/20 13:00 36.1 C L 106 H 14 102/66 91 07/23/20 12:45 99/65 07/23/20 12:30 104/67 07/23/20 12:15 122/79 H 07/23/20 12:00 158/96 H 07/23/20 11:53 214/129 H 07/23/20 11:39 215/129 H 07/23/20 11:16 113 H 07/23/20 11:15 116 H 14 97 07/23/20 11:00 36.2 C L 111 H 14 217/133 H 100 07/23/20 10:00 36.2 C L 109 H 14 209/129 H 100 Medical Necessity - Tobacco Use Smoking Status: Current every day smoker Tobacco Use: - - unknown Assessment/Plan All Active Problems Septic shock (Acute) Suicidal ideation (Acute) Acute respiratory failure (Acute) Cerebral infarction (Acute) Rhabdomyolysis (Acute) NSTEMI (non-ST elevated myocardial infarction) (Acute) Acute renal failure (Acute) Shock liver (Acute) Methamphetamine abuse (Acute) assessment 1. 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 diabetes insipidus 3. NSTEMI: 2/2 above 4. rhabdomyolysis 5. shock liver 6. JONEL 7. Fever: infectious v central Plan [facility] patient. He is not brain at this time. Will be rechecked 07/24. If passes again, then withdraw support 07/24 for cardiac in OR. Per [facility], if does not during that time, then he will be returned to ICU and will be hospice. DDAVP Linezolid, clindamycin DW patient's mother and son at bedside. Inpatient E&M: [id number] Subs Hosp L2
[2020-07-23] MEDS: Desmopressin Acetate 4 MCG/ML Ampul 2 MCG IV (15:04)
[2020-07-24] VITALS (23 sets, daily range): BP systolic 81–110; BP diastolic 44–69; PULSE 105–119; RESP 14; TEMP 36.9–38.2; O2SAT 95–99
[2020-07-24] MEDS: 0.9% Saline Lock 10 ML Syringe IV (03:11)
[2020-07-24] MEDS: Desmopressin Acetate 4 MCG/ML Ampul 2 MCG IV (03:11)
[2020-07-24 04:11] LABS: Absolute Lymphocyte Count 1.44 X10^3/uL (0.83-4.51); Absolute Neutrophil Count 10.6 X10^3/uL (2.0-7.7); Basophil# 0.09 X10^3/uL; Basophil% 0.7 % (0-1); Eosinophil# 0.16 X10^3/uL; Eosinophils% 1.2 % (0-5); Hematocrit 42.9 % (40-54); Hemoglobin 13.4 g/dL (13.0-16.5); Lymphocyte # 1.44 X10^3/ul (4.0); Lymphocyte % 11.2 % (19-41); Mean Corp Hgb Conc 31.2 g/dL (32-36); Mean Corpuscular Hgb 27.1 pg (27.0-32.0); Mean Corpuscular Volume 86.8 fL (80-94); Monocyte# 0.47 X10^3/uL; Monocyte% 3.7 % (0-10); NRBC Flagged by Analyzer 0.2 % (0-5); Neutrophil # 10.61 X10^3/uL (2.7-7.7); Neutrophil % 82.9 % (47-70); POSITIVE MORPHOLOGY YES; Platelet Count 202 K/mm3 (150-450); RBC Distribution Width CV 14.6 % (11.6-14.6); RBC Distribution Width SD 46.5 fl (35.1-43.9); Red Blood Count 4.94 M/mm3 (4.6-6.2); White Blood Count 12.8 K/mm3 (4.4-11.0)
[2020-07-24 04:12] LABS: Anion Gap 5 (5-15); BUN 21 mg/dL (7-18); BUN/Creat Ratio 16.7 RATIO (10-20); Calcium,Total 8.7 mg/dL (8.5-10.1); Chloride 122 mmol/L (98-107); Creatinine, Serum 1.26 mg/dL (0.70-1.30); Differential Indicated SCAN CRITERIA MET; EST Glomerular Filtration Rate 65 mL/min (>60); Est Glom Filt Rate - Afr Amer 79 mL/min (>60); Estimated Creatinine Clearance 74.03 ml/min; Glucose 109 mg/dL (74-106); Magnesium 2.3 mg/dL (1.6-2.6); Phosphorus 2.4 mg/dL (2.5-4.9); Sodium Level 155 mmol/L (136-145)
[2020-07-24 04:36] LABS: Differential Comment SCANNED
[2020-07-24] MEDS: Heparin Injection (Vial) 5,000 UNIT/ML VIAL 5000 UNIT SC (05:05)
[2020-07-24 06:13] LABS: AST(SGOT) 319 U/L (15-37); Alanine Aminotransfer ALT/SGPT 1103 U/L (16-61); Alkaline Phosphatase 68 U/L (45-117); Bilirubin, Direct 0.78 mg/dL (0.00-0.30); Globulin 3.8 g/dL (2.2-4.2); Protein, Total 5.8 g/dL (6.4-8.2)
--- NOTE | 2020-07-24 08:43 | PN_ITS ---
Subjective: Patient did okay overnight. Patient has had very labile blood pressures. Cardene drip has been off. Patient did have a slight fever overnight and continues to require DDAVP to avoid excessive urination. Did attempt to transition patient over to CPAP this morning and patient did have spontaneous respiratory effort, albeit small tidal volumes. General: - - Intubated. No sedation required. Unresponsive. Good ventilator synchrony. HEENT: Atraumatic, Normocephalic, - - Pupils are fixed and dilated. No corneal reflex is appreciated. Oral: Moist Mucosa, No Gingival or Mucosal Lesions/ Ulcerations Neck: Supple, No JVD, No Nodes, Trachea Midline, - - Left neck swelling is improved Lungs: No rhonchi, No wheeze, No rales, Diminished Cardiovascular: Normal S1, Normal S2, No murmurs, No rub noted, No Gallop, Tachycardic Abdomen: Bowel Sounds Present, Soft, Non Tender, Non-Distended Extremities: No clubbing, No cyanosis, Capillary Refill Less than 3 Seconds, Edema Skin: - - No change compared to previous Musculoskeletal: No Tenderness to Palpation of Joints or Extremities Lymphatic: No Cervical, Supraclavicular, or Inguinal Adenopathy Neurological: - - Negative spinal reflex exam except for spontaneous respirations on CPAP Psych/Mental Status: Flat Affect Vital Signs Temp Pulse Resp BP Pulse Ox 38.0 C H 110 H 14 93/55 L 98 07/24/20 08:00 07/24/20 08:00 07/24/20 08:00 07/24/20 08:00 07/24/20 08:00 Oxygen Delivery Method Mechanical Ventilator Weight: 87.6 kg Body Mass Index (BMI) 29.4 Intake and Output for Last 24 Hours 07/22/20 07/23/20 07/24/20 23:59 23:59 23:59 Intake Total 5233.80 / 5233.80 3325.58 / 3325.58 454 / 454 Output Total 600 / 850 7600 / 7750 660 / 660 Balance 4633.80 / 4383.80 -4274.42 / -4424.42 -206 / -206 Labs (Last 48 Hours) 07/22/20 07/22/20 07/22/20 11:35 11:35 11:35 WBC 13.8 H RBC 6.08 Hgb 16.9 H Hct 51.0 MCV 83.9 MCH 27.8 MCHC 33.1 RDW Std Deviation 42.8 RDW Coeff of Estefani 14.2 Plt Count 285 MPV 10.1 Immature Gran % (Auto) 0.400 Neut % (Auto) 84.3 H Lymph % (Auto) 10.4 L [place] % (Auto) 2.9 Eos % (Auto) 1.1 Baso % (Auto) 0.9 Absolute Neuts (auto) 11.6 H Absolute Lymphs (auto) 1.44 Nucleated RBC % 0 Differential Comment SCANNED PT INR APTT Specimen Type Sample Site pH Bicarbonate Actual Total CO2 Base Excess O2 Saturation O2 % ABG pCO2 ABG pO2 Ramiro Test Respiration Rate O2 Delivery Device Liter Flow Vent Mode Tidal Volume Blood Gas Notified Whom Blood Gas Notified Time Sodium 143 Potassium 4.6 Chloride 109 H Carbon Dioxide 20.0 L Anion Gap 14 BUN 56 H Creatinine 2.74 H Estim Creat Clear Calc 34.04 Est GFR (MDRD) Af Amer 32 L Est GFR (MDRD) Non-Af 27 L BUN/Creatinine Ratio 20.4 H Glucose 131 H Lactic Acid Calcium 9.1 Phosphorus Magnesium Total Bilirubin 1.80 H Direct Bilirubin AST 1797 H ALT 1800 H Alkaline Phosphatase 74 Total Creatine Kinase Troponin I 34.600 H* Total Protein 7.6 Albumin 3.3 Globulin 4.3 H Albumin/Globulin Ratio 0.8 L Amylase Lipase 61 L Urine Color Urine Clarity Urine pH Ur Specific [place] Urine Protein Urine Glucose (UA) Urine Ketones Urine Occult Blood Urine Nitrite Urine Bilirubin Urine Urobilinogen Ur Leukocyte Esterase Urine RBC Urine WBC Ur Squamous Epith Cells Urine Bacteria Urine Mucus Urine Opiates Screen Urine Methadone Screen Ur Barbiturates Screen Ur Phencyclidine Scrn Ur Amphetamines Screen U Methamphetamin-MDMA U Benzodiazepines Scrn Urine Cocaine Screen U Cannabinoids Screen Ur Drug Screen Comment Ethyl Alcohol < 3.0 COVID-19 ([place]) MRSA (PCR) Blood Type Antibody Screen 07/22/20 07/22/20 07/22/20 11:35 11:48 11:53 WBC RBC Hgb Hct MCV MCH MCHC RDW Std Deviation RDW Coeff of Estefani Plt Count MPV Immature Gran % (Auto) Neut % (Auto) Lymph % (Auto) [place] % (Auto) Eos % (Auto) Baso % (Auto) Absolute Neuts (auto) Absolute Lymphs (auto) Nucleated RBC % Differential Comment PT INR APTT Specimen Type ART Sample Site L RADIAL pH 7.40 Bicarbonate Actual 20.5 L Total CO2 22 Base Excess -4 L O2 Saturation 71 L O2 % ABG pCO2 33.0 L ABG pO2 37 L* Ramiro Test POS Respiration Rate O2 Delivery Device Nasal Can Liter Flow 4.0 Vent Mode Tidal Volume Blood Gas Notified Whom ED MD Blood Gas Notified Time 1155 Sodium Potassium Chloride Carbon Dioxide Anion Gap BUN Creatinine Estim Creat Clear Calc Est GFR (MDRD) Af Amer Est GFR (MDRD) Non-Af BUN/Creatinine Ratio Glucose Lactic Acid Calcium Phosphorus Magnesium Total Bilirubin Direct Bilirubin AST ALT Alkaline Phosphatase Total Creatine Kinase 14962 H Troponin I Total Protein Albumin Globulin Albumin/Globulin Ratio Amylase Lipase Urine Color Yellow Urine Clarity Clear Urine pH 5.0 Ur Specific [place] 1.025 Urine Protein 30 H Urine Glucose (UA) Normal Urine Ketones 15 H Urine Occult Blood 250 H Urine Nitrite Negative Urine Bilirubin Negative Urine Urobilinogen 1 H Ur Leukocyte Esterase 25 H Urine RBC 0-5 SEEN Urine WBC 0 SEEN Ur Squamous Epith Cells 0 SEEN Urine Bacteria 0 SEEN Urine Mucus 1+ Urine Opiates Screen Urine Methadone Screen Ur Barbiturates Screen Ur Phencyclidine Scrn Ur Amphetamines Screen U Methamphetamin-MDMA U Benzodiazepines Scrn Urine Cocaine Screen U Cannabinoids Screen Ur Drug Screen Comment Ethyl Alcohol COVID-19 ([place]) MRSA (PCR) Blood Type Antibody Screen 07/22/20 07/22/20 07/22/20 11:53 12:00 12:00 WBC RBC Hgb Hct MCV MCH MCHC RDW Std Deviation RDW Coeff of Estefani Plt Count MPV Immature Gran % (Auto) Neut % (Auto) Lymph % (Auto) [place] % (Auto) Eos % (Auto) Baso % (Auto) Absolute Neuts (auto) Absolute Lymphs (auto) Nucleated RBC % Differential Comment PT 18.2 H INR 1.6 APTT QNS Specimen Type Sample Site pH Bicarbonate Actual Total CO2 Base Excess O2 Saturation O2 % ABG pCO2 ABG pO2 Ramiro Test Respiration Rate O2 Delivery Device Liter Flow Vent Mode Tidal Volume Blood Gas Notified Whom Blood Gas Notified Time Sodium Potassium Chloride Carbon Dioxide Anion Gap BUN Creatinine Estim Creat Clear Calc Est GFR (MDRD) Af Amer Est GFR (MDRD) Non-Af BUN/Creatinine Ratio Glucose Lactic Acid 6.2 H* Calcium Phosphorus Magnesium Total Bilirubin Direct Bilirubin AST ALT Alkaline Phosphatase Total Creatine Kinase Troponin I Total Protein Albumin Globulin Albumin/Globulin Ratio Amylase Lipase Urine Color Urine Clarity Urine pH Ur Specific [place] Urine Protein Urine Glucose (UA) Urine Ketones Urine Occult Blood Urine Nitrite Urine Bilirubin Urine Urobilinogen Ur Leukocyte Esterase Urine RBC Urine WBC Ur Squamous Epith Cells Urine Bacteria Urine Mucus Urine Opiates Screen NEGATIVE Urine Methadone Screen NEGATIVE Ur Barbiturates Screen NEGATIVE Ur Phencyclidine Scrn NEGATIVE Ur Amphetamines Screen POSITIVE H U Methamphetamin-MDMA POSITIVE H U Benzodiazepines Scrn NEGATIVE Urine Cocaine Screen NEGATIVE U Cannabinoids Screen NEGATIVE Ur Drug Screen Comment Ethyl Alcohol COVID-19 ([place]) MRSA (PCR) Blood Type Antibody Screen 07/22/20 07/22/20 07/22/20 13:13 20:25 20:25 WBC RBC Hgb Hct MCV MCH MCHC RDW Std Deviation RDW Coeff of Estefani Plt Count MPV Immature Gran % (Auto) Neut % (Auto) Lymph % (Auto) [place] % (Auto) Eos % (Auto) Baso % (Auto) Absolute Neuts (auto) Absolute Lymphs (auto) Nucleated RBC % Differential Comment PT INR APTT Specimen Type ART Sample Site R Radial pH 7.37 Bicarbonate Actual 20.9 L Total CO2 22 Base Excess -4 L O2 Saturation 92 L O2 % 100 ABG pCO2 36.4 ABG pO2 66 L Ramiro Test Positive Respiration Rate 14.0000 O2 Delivery Device Adult Vent Liter Flow Vent Mode AC Tidal Volume 500 Blood Gas Notified Whom Blood Gas Notified Time Sodium 147 H Potassium 4.6 Chloride 119 H Carbon Dioxide 23.0 Anion Gap 5 BUN 49 H Creatinine 2.06 H Estim Creat Clear Calc 45.28 Est GFR (MDRD) Af Amer 45 L Est GFR (MDRD) Non-Af 37 L BUN/Creatinine Ratio 23.8 H Glucose 109 H Lactic Acid 2.5 H* Calcium 7.0 L Phosphorus Magnesium Total Bilirubin 1.10 H Direct Bilirubin 0.34 H AST 1143 H ALT 1310 H Alkaline Phosphatase 46 Total Creatine Kinase Troponin I 46.100 H* Total Protein 4.8 L Albumin 2.1 L Globulin 2.7 Albumin/Globulin Ratio 0.8 L Amylase 672 H Lipase 47 L Urine Color Urine Clarity Urine pH Ur Specific [place] Urine Protein Urine Glucose (UA) Urine Ketones Urine Occult Blood Urine Nitrite Urine Bilirubin Urine Urobilinogen Ur Leukocyte Esterase Urine RBC Urine WBC Ur Squamous Epith Cells Urine Bacteria Urine Mucus Urine Opiates Screen Urine Methadone Screen Ur Barbiturates Screen Ur Phencyclidine Scrn Ur Amphetamines Screen U Methamphetamin-MDMA U Benzodiazepines Scrn Urine Cocaine Screen U Cannabinoids Screen Ur Drug Screen Comment Ethyl Alcohol COVID-19 ([place]) MRSA (PCR) Blood Type Antibody Screen 07/22/20 07/22/20 07/22/20 21:25 22:20 23:30 WBC RBC Hgb Hct MCV MCH MCHC RDW Std Deviation RDW Coeff of Estefani Plt Count MPV Immature Gran % (Auto) Neut % (Auto) Lymph % (Auto) [place] % (Auto) Eos % (Auto) Baso % (Auto) Absolute Neuts (auto) Absolute Lymphs (auto) Nucleated RBC % Differential Comment PT INR APTT Specimen Type Sample Site pH Bicarbonate Actual Total CO2 Base Excess O2 Saturation O2 % ABG pCO2 ABG pO2 Ramiro Test Respiration Rate O2 Delivery Device Liter Flow Vent Mode Tidal Volume Blood Gas Notified Whom Blood Gas Notified Time Sodium Potassium Chloride Carbon Dioxide Anion Gap BUN Creatinine Estim Creat Clear Calc Est GFR (MDRD) Af Amer Est GFR (MDRD) Non-Af BUN/Creatinine Ratio Glucose Lactic Acid Calcium Phosphorus Magnesium Total Bilirubin Direct Bilirubin AST ALT Alkaline Phosphatase Total Creatine Kinase Troponin I 33.400 H* Total Protein Albumin Globulin Albumin/Globulin Ratio Amylase Lipase Urine Color Yellow Urine Clarity Clear Urine pH 5.0 Ur Specific [place] 1.015 Urine Protein 30 H Urine Glucose (UA) Normal Urine Ketones Negative Urine Occult Blood 250 H Urine Nitrite Negative Urine Bilirubin Negative Urine Urobilinogen Normal Ur Leukocyte Esterase 25 H Urine RBC 0-5 SEEN Urine WBC 0-5 SEEN Ur Squamous Epith Cells 0 SEEN Urine Bacteria RARE Urine Mucus 0 SEEN Urine Opiates Screen Urine Methadone Screen Ur Barbiturates Screen Ur Phencyclidine Scrn Ur Amphetamines Screen U Methamphetamin-MDMA U Benzodiazepines Scrn Urine Cocaine Screen U Cannabinoids Screen Ur Drug Screen Comment Ethyl Alcohol COVID-19 ([place]) Not Detected MRSA (PCR) Blood Type Antibody Screen 07/22/20 07/22/20 07/23/20 23:30 23:39 00:15 WBC RBC Hgb Hct MCV MCH MCHC RDW Std Deviation RDW Coeff of Estefani Plt Count MPV Immature Gran % (Auto) Neut % (Auto) Lymph % (Auto) [place] % (Auto) Eos % (Auto) Baso % (Auto) Absolute Neuts (auto) Absolute Lymphs (auto) Nucleated RBC % Differential Comment PT INR APTT Specimen Type ART Sample Site Art Line pH 7.33 L Bicarbonate Actual 23.7 Total CO2 25 Base Excess -2 O2 Saturation 100 H O2 % 80 ABG pCO2 45.4 H ABG pO2 189 H Ramiro Test Respiration Rate 14.0000 O2 Delivery Device Adult Vent Liter Flow Vent Mode AC Tidal Volume 550 Blood Gas Notified Whom Blood Gas Notified Time Sodium Potassium Chloride Carbon Dioxide Anion Gap BUN Creatinine Estim Creat Clear Calc Est GFR (MDRD) Af Amer Est GFR (MDRD) Non-Af BUN/Creatinine Ratio Glucose Lactic Acid Calcium Phosphorus 3.0 Magnesium 1.9 Total Bilirubin Direct Bilirubin AST ALT Alkaline Phosphatase Total Creatine Kinase Troponin I Total Protein Albumin Globulin Albumin/Globulin Ratio Amylase Lipase Urine Color Urine Clarity Urine pH Ur Specific [place] Urine Protein Urine Glucose (UA) Urine Ketones Urine Occult Blood Urine Nitrite Urine Bilirubin Urine Urobilinogen Ur Leukocyte Esterase Urine RBC Urine WBC Ur Squamous Epith Cells Urine Bacteria Urine Mucus Urine Opiates Screen Urine Methadone Screen Ur Barbiturates Screen Ur Phencyclidine Scrn Ur Amphetamines Screen U Methamphetamin-MDMA U Benzodiazepines Scrn Urine Cocaine Screen U Cannabinoids Screen Ur Drug Screen Comment Ethyl Alcohol COVID-19 ([place]) MRSA (PCR) Negative Blood Type Antibody Screen 07/23/20 07/23/20 07/23/20 00:30 03:30 03:30 WBC 10.2 RBC 4.81 Hgb 13.3 Hct 40.9 MCV 85.0 MCH 27.7 MCHC 32.5 RDW Std Deviation 44.8 H RDW Coeff of Estefani 14.4 Plt Count 204 MPV 9.8 Immature Gran % (Auto) 0.400 Neut % (Auto) 77.6 H Lymph % (Auto) 17.1 L [place] % (Auto) 4.1 Eos % (Auto) 0.3 Baso % (Auto) 0.5 Absolute Neuts (auto) 7.9 H Absolute Lymphs (auto) 1.74 Nucleated RBC % 0 Differential Comment SCANNED PT INR APTT Specimen Type Sample Site pH Bicarbonate Actual Total CO2 Base Excess O2 Saturation O2 % ABG pCO2 ABG pO2 Ramiro Test Respiration Rate O2 Delivery Device Liter Flow Vent Mode Tidal Volume Blood Gas Notified Whom Blood Gas Notified Time Sodium Potassium Chloride Carbon Dioxide Anion Gap BUN Creatinine Estim Creat Clear Calc Est GFR (MDRD) Af Amer Est GFR (MDRD) Non-Af BUN/Creatinine Ratio Glucose Lactic Acid Calcium Phosphorus Magnesium Total Bilirubin Direct Bilirubin AST ALT Alkaline Phosphatase Total Creatine Kinase Troponin I 32.800 H* Total Protein Albumin Globulin Albumin/Globulin Ratio Amylase Lipase Urine Color Urine Clarity Urine pH Ur Specific [place] Urine Protein Urine Glucose (UA) Urine Ketones Urine Occult Blood Urine Nitrite Urine Bilirubin Urine Urobilinogen Ur Leukocyte Esterase Urine RBC Urine WBC Ur Squamous Epith Cells Urine Bacteria Urine Mucus Urine Opiates Screen Urine Methadone Screen Ur Barbiturates Screen Ur Phencyclidine Scrn Ur Amphetamines Screen U Methamphetamin-MDMA U Benzodiazepines Scrn Urine Cocaine Screen U Cannabinoids Screen Ur Drug Screen Comment Ethyl Alcohol COVID-19 ([place]) MRSA (PCR) Blood Type O POSITIVE Antibody Screen NEGATIVE 07/23/20 07/24/20 07/24/20 03:30 03:50 03:50 WBC 12.8 H RBC 4.94 Hgb 13.4 Hct 42.9 MCV 86.8 MCH 27.1 MCHC 31.2 L RDW Std Deviation 46.5 H RDW Coeff of Estefani 14.6 Plt Count 202 MPV 10.0 Immature Gran % (Auto) 0.300 Neut % (Auto) 82.9 H Lymph % (Auto) 11.2 L [place] % (Auto) 3.7 Eos % (Auto) 1.2 Baso % (Auto) 0.7 Absolute Neuts (auto) 10.6 H Absolute Lymphs (auto) 1.44 Nucleated RBC % 0.2 Differential Comment SCANNED PT INR APTT Specimen Type Sample Site pH Bicarbonate Actual Total CO2 Base Excess O2 Saturation O2 % ABG pCO2 ABG pO2 Ramiro Test Respiration Rate O2 Delivery Device Liter Flow Vent Mode Tidal Volume Blood Gas Notified Whom Blood Gas Notified Time Sodium 152 H 155 H Potassium 4.4 4.0 Chloride 122 H 122 H Carbon Dioxide 26.0 28.0 Anion Gap 4 L 5 BUN 37 H 21 H Creatinine 1.39 H 1.26 Estim Creat Clear Calc 67.11 74.03 Est GFR (MDRD) Af Amer 70 79 Est GFR (MDRD) Non-Af 58 L 65 BUN/Creatinine Ratio 26.6 H 16.7 Glucose 110 H 109 H Lactic Acid Calcium 8.3 L 8.7 Phosphorus 3.0 2.4 L Magnesium 2.4 2.3 Total Bilirubin 1.40 H Direct Bilirubin 0.39 H AST 1104 H ALT 1650 H Alkaline Phosphatase 56 Total Creatine Kinase 6310 H Troponin I Total Protein 5.7 L Albumin 2.4 L Globulin 3.3 Albumin/Globulin Ratio 0.7 L Amylase Lipase Urine Color Urine Clarity Urine pH Ur Specific [place] Urine Protein Urine Glucose (UA) Urine Ketones Urine Occult Blood Urine Nitrite Urine Bilirubin Urine Urobilinogen Ur Leukocyte Esterase Urine RBC Urine WBC Ur Squamous Epith Cells Urine Bacteria Urine Mucus Urine Opiates Screen Urine Methadone Screen Ur Barbiturates Screen Ur Phencyclidine Scrn Ur Amphetamines Screen U Methamphetamin-MDMA U Benzodiazepines Scrn Urine Cocaine Screen U Cannabinoids Screen Ur Drug Screen Comment Ethyl Alcohol COVID-19 ([place]) MRSA (PCR) Blood Type Antibody Screen 07/24/20 03:50 WBC RBC Hgb Hct MCV MCH MCHC RDW Std Deviation RDW Coeff of Estefani Plt Count MPV Immature Gran % (Auto) Neut % (Auto) Lymph % (Auto) [place] % (Auto) Eos % (Auto) Baso % (Auto) Absolute Neuts (auto) Absolute Lymphs (auto) Nucleated RBC % Differential Comment PT INR APTT Specimen Type Sample Site pH Bicarbonate Actual Total CO2 Base Excess O2 Saturation O2 % ABG pCO2 ABG pO2 Ramiro Test Respiration Rate O2 Delivery Device Liter Flow Vent Mode Tidal Volume Blood Gas Notified Whom Blood Gas Notified Time Sodium Potassium Chloride Carbon Dioxide Anion Gap BUN Creatinine Estim Creat Clear Calc Est GFR (MDRD) Af Amer Est GFR (MDRD) Non-Af BUN/Creatinine Ratio Glucose Lactic Acid Calcium Phosphorus Magnesium Total Bilirubin 2.40 H Direct Bilirubin 0.78 H AST 319 H ALT 1103 H Alkaline Phosphatase 68 Total Creatine Kinase Troponin I Total Protein 5.8 L Albumin 2.0 L Globulin 3.8 Albumin/Globulin Ratio Amylase Lipase Urine Color Urine Clarity Urine pH Ur Specific [place] Urine Protein Urine Glucose (UA) Urine Ketones Urine Occult Blood Urine Nitrite Urine Bilirubin Urine Urobilinogen Ur Leukocyte Esterase Urine RBC Urine WBC Ur Squamous Epith Cells Urine Bacteria Urine Mucus Urine Opiates Screen Urine Methadone Screen Ur Barbiturates Screen Ur Phencyclidine Scrn Ur Amphetamines Screen U Methamphetamin-MDMA U Benzodiazepines Scrn Urine Cocaine Screen U Cannabinoids Screen Ur Drug Screen Comment Ethyl Alcohol COVID-19 ([place]) MRSA (PCR) Blood Type Antibody Screen Medical Necessity - Tobacco Use Smoking Status: Current every day smoker Tobacco Use: - - unknown Assessment/Plan All Active Problems Septic shock (Acute) Suicidal ideation (Acute) Acute respiratory failure (Acute) Cerebral infarction (Acute) Rhabdomyolysis (Acute) NSTEMI (non-ST elevated myocardial infarction) (Acute) Acute renal failure (Acute) Shock liver (Acute) Methamphetamine abuse (Acute) RECOMMENDATIONS: 1. Continue aggressive blood pressure control with both Cardene and levo as indicated 2. DDAVP to continue for urine output 3. Frequent neurologic checks 4. Likely need to evaluate for DCD 5. Okay to continue empiric antibiotics for now IMPRESSIONS: 1. Anoxic encephalopathy with bilateral cerebellar infarction secondary to presumed drug overdose Exact etiology is unclear at this time. Patient does have significant findings in the cerebellar region of anoxia. Cerebral changes are relatively minimal. Patient has lost significant cranial reflexes, but still has some element of brain function as noted by spontaneous respiratory effort. We will continue to monitor frequent neurologic checks. If patient loses reflexes, apnea test can be performed. [place] is involved at this time. Patient did develop diabetes insipidus that responded well to DDAVP indicating a central etiology. Patient is 48 hours from presentation and there is some concern for possible persistent vegetative state if given full support. Patient does have some respiratory effort on CPAP, but tidal volumes are likely not compatible with life without ventilatory support. Clinical suspicion the patient would be dependent on lifelong ventilation if aggressive measures were pursued. We will continue with aggressive blood pressure control using labetalol, Levophed and nicardipine as necessary until DCD preparations are made. 2. Shock liver/rhabdomyolysis Clinical suspicion for significant shock liver and rhabdomyolysis secondary to delayed presentation. Repeat studies show continued improvement. Lactic acid is likely improving secondary to better perfusion. We will continue supportive measures. 3. Non-ST elevation AK Patient with persistently elevated troponins throughout the hospitalization. Blood pressures appear to be adequate at this time. Cardiac donation is not being recommended at this time per the information available. We will hold off on any echocardiogram or heart catheterization given goals of therapy. Patient does have bilateral infiltrates noted previously, but oxygenation has been improving. It is unclear if this is related to pulmonary edema versus aspiration. Patient is on appropriate antibiotics with normalization of white blood cell count today. 4. Acute kidney injury Significant improvement in renal function following stabilization of hemodynamics. Patient has had some hypernatremia and hyperchloremia resolved, likely secondary to resuscitation and diabetes insipidus. Patient has been given DDAVP with improvement. This would indicate a central origin. 5. Polysubstance abuse/poor history/central diabetes insipidus Complicates care, management, recovery and prognosis. Appropriate parties have been informed of the events leading to hospitalization. Family is pursuing organ donation if possible. Life bank is involved. Current directive indicates that patient will not be resuscitated if he codes while on the ventilator. TIME: 35 minutes critical care time spent addressing patient's anoxic encephalopathy, shock liver, non-ST elevation AK, acute kidney injury, review of all data and collaboration with care team (6 AM to 8 AM) [id number] Critical care first hour
[2020-07-24] MEDS: Linezolid 600 MG 600 MG/300 ML BAG 200 MG IV (09:35)
[2020-07-24] MEDS: Chlorhexidine 15 ML PO (09:35)
--- NOTE | 2020-07-24 11:56 | PCM.PN.HOSP ---
Patient Problems: Active and Suspected Problems Septic shock (Acute) Acute respiratory failure (Acute) Cerebral infarction (Acute) Rhabdomyolysis (Acute) NSTEMI (non-ST elevated myocardial infarction) (Acute) Acute renal failure (Acute) Shock liver (Acute) Methamphetamine abuse (Acute) Reason for Visit: shock Subjective: Breathed spontaneously on apnea test. Vitals/I&O's: Vital Signs Temp Pulse Resp BP Pulse Ox 37.9 C H 105 H 14 96/52 L 99 07/24/20 11:00 07/24/20 11:00 07/24/20 11:00 07/24/20 11:00 07/24/20 11:00 Oxygen Delivery Method Mechanical Ventilator Weight: 87.6 kg Body Mass Index (BMI) 29.4 Intake and Output for Last 24 Hours 07/22/20 07/23/20 07/24/20 23:59 23:59 23:59 Intake Total 5233.80 / 5233.80 3325.58 / 3325.58 1756.83 / 1756.83 Output Total 600 / 850 7600 / 7750 660 / 660 Balance 4633.80 / 4383.80 -4274.42 / -4424.42 1096.83 / 1096.83 General: - - unresponsive. HEENT: Atraumatic, Normocephalic Oral: Moist Mucosa, No Gingival or Mucosal Lesions/ Ulcerations Neck: No Nodes, Thyroid Normal Size and Texture Lungs: Clear to auscultation, Normal air movement, No rhonchi, No wheeze, No rales Cardiovascular: Regular rate, Regular Rhythm, Normal S1, Normal S2 Abdomen: Bowel Sounds Present, Soft, Non Tender, Non-Distended, No Hepato-splenomegaly Extremities: No edema, No Calf Tenderness Microbiology Past 72 Hours 07/22/20 22:20 Urine Catheter - Brown Urine Culture - Preliminary Culture exhibits no growth. Laboratory Results 07/24/20 03:50: WBC 12.8 H, RBC 4.94, Hgb 13.4, Hct 42.9, MCV 86.8, MCH 27.1, MCHC 31.2 L, RDW Std Deviation 46.5 H, RDW Coeff of Estefani 14.6, Plt Count 202, MPV 10.0, Immature Gran % (Auto) 0.300, Neut % (Auto) 82.9 H, Lymph % (Auto) 11.2 L, Haskell % (Auto) 3.7, Eos % (Auto) 1.2, Baso % (Auto) 0.7, Absolute Neuts (auto) 10.6 H, Absolute Lymphs (auto) 1.44, Nucleated RBC % 0.2, Differential Comment SCANNED 07/24/20 03:50: Sodium 155 H, Potassium 4.0, Chloride 122 H, Carbon Dioxide 28.0, Anion Gap 5, BUN 21 H, Creatinine 1.26, Estim Creat Clear Calc 74.03, Est GFR (MDRD) Af Amer 79, Est GFR (MDRD) Non-Af 65, BUN/Creatinine Ratio 16.7, Glucose 109 H, Calcium 8.7, Phosphorus 2.4 L, Magnesium 2.3 07/24/20 03:50: Total Bilirubin 2.40 H, Direct Bilirubin 0.78 H, AST 319 H, ALT 1103 H, Alkaline Phosphatase 68, Total Protein 5.8 L, Albumin 2.0 L, Globulin 3.8 Current Medications Chlorhexidine Gluconate () 15 ml PO BID [facility] Last Admin: 07/24/20 09:35 Dose: 15 ml Documented by: Desmopressin Acetate (Ddavp) 2 mcg IV Q12H [facility] Last Admin: 07/24/20 03:11 Dose: 2 mcg Documented by: Heparin Sodium (Porcine) (Heparin Na) 5,000 unit SC Q8 [facility] Last Admin: 07/24/20 05:05 Dose: 5,000 unit Documented by: Hydromorphone HCl (Dilaudid Inj) 1 mg IV Q4H PRN PRN PRN Reason: Pain or sedation Lactated Ringer's () 1,000 mls @ 75 mls/hr IV .[id number] [facility] Last Infusion: 07/24/20 10:13 Dose: 75 mls/hr Documented by: Norepinephrine Bitartrate 8 mg (/ Sodium Chloride) 250 mls @ 9.375 mls/hr CONT INF .[id number] [facility]; Protocol Last Titration: 07/24/20 10:45 Dose: 10 mcg/min, 18.8 mls/hr Documented by: Sodium Chloride () 250 mls @ 15 mls/hr IV .[id number] PRN PRN Reason: Saline Flush Sodium Chloride () 250 mls @ 15 mls/hr IV .[id number] PRN PRN Reason: Additional IVPB Infusion Vasopressin 20 units/ Sodium (Chloride) 25 mls @ 3 mls/hr IV .[id number] [facility] Last Admin: 07/24/20 03:19 Dose: Not Given Documented by: Linezolid (Zyvox 600mg) 600 mg in 300 mls @ 200 mls/hr IV Q12 [facility] Last Infusion: 07/24/20 11:05 Dose: Infused Documented by: Cefepime HCl 2 gm/ Sodium (Chloride) 100 mls @ 200 mls/hr IV Q8 [facility] Last Infusion: 07/24/20 05:45 Dose: Infused Documented by: Clindamycin Phosphate 600 mg/ (Dextrose) 54 mls @ 100 mls/hr IV Q8 [facility] Last Infusion: 07/24/20 05:45 Dose: Infused Documented by: Pantoprazole Sodium 40 mg/ (Sodium Chloride) 110 mls @ 330 mls/hr IV Q24 [facility] Last Infusion: 07/24/20 09:55 Dose: Infused Documented by: Nicardipine HCl 25 mg/ Sodium (Chloride) 250 mls @ 50 mls/hr CONT INF .Q5H [facility]; Protocol Last Admin: 07/24/20 05:45 Dose: Not Given Documented by: Labetalol HCl (Trandate) 20 mg IV Q4H PRN PRN PRN Reason: [id number]>160 Last Admin: 07/22/20 17:20 Dose: 20 mg Documented by: Sodium Chloride () 10 - 40 ml IV UD PRN PRN Reason: SALINE FLUSH Last Admin: 07/24/20 03:11 Dose: 40 ml Documented by: STROKE Vital Signs/Narrative: Vital Signs Temp Pulse Resp BP BP Pulse Ox 07/24/20 11:00 37.9 C H 105 H 14 96/52 L 99 07/24/20 10:45 88/47 L 07/24/20 10:35 92/52 L 07/24/20 10:23 93/52 L 07/24/20 10:11 81/44 L 07/24/20 08:00 38.0 C H 110 H 14 93/55 L 98 Medical Necessity - Tobacco Use Smoking Status: Current every day smoker Tobacco Use: - - unknown Assessment/Plan All Active Problems Septic shock (Acute) Suicidal ideation (Acute) Acute respiratory failure (Acute) Cerebral infarction (Acute) Rhabdomyolysis (Acute) NSTEMI (non-ST elevated myocardial infarction) (Acute) Acute renal failure (Acute) Shock liver (Acute) Methamphetamine abuse (Acute) assessment 1. 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 diabetes insipidus 3. NSTEMI: 2/2 above 4. rhabdomyolysis 5. shock liver 6. JONEL 7. Fever: infectious v central Plan [facility] patient. He is not brain at this time. [facility]. plan to take patient to OR at 1415, premedicate with morphine and lorazepam, then withdrawal care, wait for asystole, then be pronounced 5 minutes afterwards. Per [facility], if does not during that time, then he will be returned to ICU and will be hospice. DDAVP Linezolid, clindamycin DW patient's mother, fiance and sons at bedside. Inpatient E&M: 70456 Subs Hosp L2
[2020-07-24 12:42] LABS: Mucous, Urine 0 SEEN /hpf (<or=2+)
[2020-07-24 12:56] LABS: Color, Urine Yellow (Yellow); Glucose, Dipstick Normal (Normal); Ketone-Dipstick 5 mg/dl (Negative); Leukocyte Esterase-Dipstick 25 /ul (Negative); Nitrite-Dipstick Negative (Negative); Occult Blood-Urine 25 /ul (Negative); Protein-Dipstick 30 mg/dl (Negative); Urine Bilirubin Dipstick Negative (Negative); Urine Clarity Sl. Cloudy (Clear); Urine Urobilinogen Normal (Normal)
[2020-07-24 13:04] LABS: Bacteria 1+ /hpf (None Seen); Red Blood Cells-Urine 0-5 SEEN /hpf (0-5); Squamous Epithelial Cells - UA 0-5 SEEN /hpf (0-5); White Blood Cells 0-5 SEEN /hpf (0-5)
[2020-07-24] MEDS: LORazepam 2 MG/ML Syringe 1 MG IV (15:08)
[2020-07-24] MEDS: Morphine 4 MG/ML Syringe IV (15:08)
--- NOTE | 2020-07-24 15:48 | PCM.DEATH ---
Preliminary Cause of anoxic encephalopathy due to drug overdose. Date of Admission: 07/22/20 Date of : 07/24/20 - Principle Diagnosis Anoxic encephalopathy due to likely drug overdose Problem List: Active and Suspected Problems acute hypoxic respiratory failure drug overdose diabetes insipidus NSTEMI: 2/2 above rhabdomyolysis shock liver JONEL Fever: infectious v central lactic acidosis Hospital Course 50-year-old white male who is found in the field for respiratory distress. Patient was found in a shack and was noted to have pinpoint pupils and did receive 3 rounds of Narcan. Patient was noted to be hypoxic of 70% range. Patient had CAT scan performed that showed changes consistent involving the cerebellum and cerebral hemispheres and basal ganglia consistent with anoxic encephalopathy. Patient was intubated in the emergency room. Patient's mother arrived in the emergency room and stated that he would want to pursue with organ donation. [facility]. Through the course of his hospitalizations he did develop a diabetes insipidus and was put on DDAVP. Patient also had elevated CPKs consistent with rhabdomyolysis and elevated cardiac enzymes consistent with likely type II non-ST elevation myocardial infarction. After further discussions with [facility] [employer], patient was deemed a candidate for organ harvesting. Patient was brought to the emergent operating room today and was terminally extubated. Patient developed asystole at 1526 and was pronounced at 1530. Patient had no spontaneous respirations, did not respond to noxious stimuli, did not have any audible heart or lung sounds. [facility] surgeons then presented and proceeded to harvest organs. Cause of is anoxic encephalopathy due to drug overdose. There is some question if this was a suicide attempt or not but that was later refuted. Patient has been known in the community of making methamphetamines out of loss bradycardia apparently. Inpatient E&M: 11819 Disch Hosp - Greater than 60 minutes of which was evaluate the patient in the ICU and discussing with family, remaining in the operating room where the patient was terminally extubated and observed for asystole and then pronounced.
== END 2020-07-24 15:26 | DRG 812 ==
LOC: ED 12:38 → ICU 15:33
PROVIDERS: Hospitalist; Internal Medicine Critical Care Medicine; Admitting Provider Internal Medicine; Emergency Provider Emergency Medicine; PCP Family Medicine
DX: T50.911A Poisoning by multiple unspecified drugs, medicaments and biological substances, accidental (unintentional), initial encounter (principal); G93.1 Anoxic brain damage, not elsewhere classified; K72.01 Acute and subacute hepatic failure with coma; A41.9 Sepsis, unspecified organism; R65.21 Severe sepsis with septic shock; I21.A1 Myocardial infarction type 2; I63.9 Cerebral infarction, unspecified; N17.9 Acute kidney failure, unspecified; K72.00 Acute and subacute hepatic failure without coma; M62.82 Rhabdomyolysis; J96.01 Acute respiratory failure with hypoxia; F15.10 Other stimulant abuse, uncomplicated; F19.10 Other psychoactive substance abuse, uncomplicated; Y92.89 Other specified places as the place of occurrence of the external cause; E23.2 Diabetes insipidus; J44.9 Chronic obstructive pulmonary disease, unspecified; I10 Essential (primary) hypertension; F17.200 Nicotine dependence, unspecified, uncomplicated; F32.9 Major depressive disorder, single episode, unspecified
CPT/HCPCS: 31500; 31720; 36600; 36620; 51702; 70450; 71045; 80048; 80053; 80076; 80307; 80320; 81001; 82150; 82550; 82803; 83605; 83690; 83735; 84100; 84484; 85025; 85610; 86850; 86900; 86901; 87040; 87086; 87635; 87641; 93005; 94002; 94003; 99251; 99285; C9803; J2020; J7030; J7050; J7120; A4216; C1751; G0463; G0480; J2597; J3490; U0003